=== PATIENT | male | born 1940 | race Caucasian/White ===

== ENCOUNTER → 2024-05-10 14:08 | Outpatient (REF) | payer MEDICARE, OTHER, SELFPAY | LOC: HWRAD 14:08 | PROVIDERS: ATTENDING PHYSICIAN Internal Medicine Geriatric Medicine | DX: S09.90XA Unspecified injury of head, initial encounter (principal) | CPT/HCPCS: 70450 ==

== ENCOUNTER 2024-05-24 05:50 | Emergency (ER) | payer MEDICARE, OTHER, SELFPAY ==
[2024-05-24] VITALS (9 sets, daily range): BP systolic 118–151; BP diastolic 67–95; BMI 24.6
[2024-05-24 06:10] LABS: % Basophils 0.7 % (0-2); % Eosinophils 2.4 % (0-6); % Immature Granulocytes 0.4 % (0-0.5); % Lymphocytes 28.7 % (20.5-51.1); % Monocytes 6.1 % (1.7-9.3); % Neutrophils 61.7 % (42.2-75.2); Absolute Basophils 0.1 10^3/uL (0-0.2); Absolute Eosinophils 0.2 10^3/uL (0-0.7); Absolute Lymphocytes 2.1 10^3/uL (1.2-3.4); Absolute Monocytes 0.5 10^3/uL (0.1-0.6); Absolute Neutrophils 4.6 10^3/uL (1.4-6.5); Hematocrit 41.4 % (39.0-52.0); Mean Corp Hgb Conc. 33.8 g/dL (33.0-37.0); Mean Corpuscular Hgb 29.3 pg (27.0-31.0); Mean Corpuscular Volume 86.6 fL (80.0-94.0); Mean Platelet Volume 9.7 fL (7.4-10.4); Nucleated Red Blood Cells % 0 % (-); Platelet Count 198 10^3/uL (130-400); Red Blood Cell Count 4.78 10^6/uL (4.70-6.10); Red Cell Dist. Width 14.5 % (11.5-14.5); White Blood Cell Count 7.4 10^3/uL (4.8-10.8)
--- NOTE | 2024-05-24 06:14 | ED.GENMED ---
History of Present Illness
General
Chief Complaint: Chest Pain
Source: patient and spouse
Exam Limitations: none
Time Seen by Provider: 05/24/24 06:06
History of Present Illness
History of Present Illness:
83-year-old male woke at 430 this morning to go to the bathroom. About 530 this morning developed substernal chest pressure with some clamminess no pleuritic pain no shortness of breath no radiation to the arm neck or back. No shearing pain.
Symptoms lasted about 5 minutes and have resolved. Patient feels fine at this time. No history of similar symptoms. He has been having chronic intermittent lightheadedness and is referred to cardiology for this reason. He has some known aortic
stenosis by echocardiogram. Currently asymptomatic.
Past History
Past History
ED Past Medical History: HTN, Hypercholesterolemia and Valvular disease (Aortic stenosis)
Review of Systems
Review of Systems
All Other Systems: Not applicable
Constitutional: Denies fever
Respiratory: Reports no symptoms
ABD/GI: Denies abdominal pain, bloody stools or black stools
Phy Exam
Physical Exam
Physical Exam:
GENERAL: Alert and oriented in no apparent distress
EYE: Orbits normal.
NECK: Supple
CARDIAC: Regular rate and rhythm with mild midsystolic murmur
LUNGS: Clear breath sounds,normal
ABDOMEN: Soft, without focal tenderness or distention
NEUROLOGICAL: Alert and oriented , grossly non-focal
SKIN: Warm and dry, no rash or lesion, no discoloration, skin intact.
MUSCULOSKELETAL: No edema,no deformity.Good color
PSYCH: Normal and appropriate interaction.
Scores
Heart Score for Chest Pain Patients
STEMI patient?: No
History: Moderately Suspicious
ECG: Nonspecific Repolarization
Age: >/= 65 years
Risk Factors: 1 or 2 Risk Factors
Troponin: </= Normal Limit
Heart Score for Chest Pain Patients: 5
Heart Score Risk: 20.3% MACE over next 6 weeks
Course
Orders/Labs/Results
Orders:
Orders
05/24/24 05:51
Electrocardiogram (*1) Urgent
Reason for Study: Chest Pain
Cardiac Monitoring- Treatment ONCE
EKG- Treatment ONCE
IV Insert/Care/Rem.- Treatment PRN
O2 Therapy [RESP] Urgent
Titrate/Wean O2 to maintain O2 sat greater than (%): 90
Special Instructions: Maintain sats >/=90%
Pulse Ox/spot Check [RESP] Urgent
Quantity: 1
Special Instructions: ON ROOM AIR
05/24/24 06:00
Complete Blood Count/With Diff Urgent
Comprehensive Metabolic Panel Urgent
D-Dimer Urgent
Troponin I Urgent
05/24/24 06:46
Electrocardiogram (*1) Urgent
Reason for Study: Chest Pain
EKG- Treatment ONCE
05/24/24 07:35
Aspirin Chewable [Low Strength Aspirin] 324 mg PO NOW STA
CXR Port [CR Chest Portable - 1 View] Urgent
Comment:
Reason For Exam: cp
Reason Study Needs to be Portable: Unable to Transport
05/24/24 08:28
Troponin I Urgent
05/24/24 09:05
CT Chest Pe Study Urgent
Comment:
Reason For Exam: cp/pos dimer
Abnormal Lab Results
05/24/24
06:00
D-Dimer 0.76 H ug/mlFEU
(0.00-0.50)
Chloride 108 H mmol/L
(98-107)
BUN 23 H mg/dl
(9-20)
Glucose 113 H mg/dl
(70-99)
05/24/24 06:00
05/24/24 06:00
Vital Signs
Initial and Last Documented VS:
Initial Vital Signs
Temp Pulse Resp BP
98.0 F 82 15 151/83
05/24/24 05:53 05/24/24 05:53 05/24/24 05:53 05/24/24 05:53
Last Documented Vital Signs
Temp Pulse Resp BP Pulse Ox
98.0 F 72 16 138/76 95
05/24/24 05:53 05/24/24 07:00 05/24/24 07:00 05/24/24 07:00 05/24/24 06:03
MDM/Problems Addressed
Differential Diagnosis Includes:
Patient with brief resolved nonexertional chest pain. Workup including cardiac evaluation. If this is negative to consider PE or aortic issue although very unlikely. Currently stable and nontoxic
*Pulse Oximetry
Patient hypoxic: no
*EKG
Interpreted by ED Provider?: Yes
Interpretation: abnormal
Comparison EKG: no comparison EKG present
Heart Rate: 75
Rate: normal
Rhythm: sinus
[place]: normal axis
Interval: normal interval
QRS Pattern: normal QRS
Ischemia: non-specific ST changes
*Critical Care Note
Total Time (30-74mins, 75-104mins- exclusive of procedures): Not Applicable
Data Reviewed
Review of Other/Old Records Reveals: Testing (Echocardiogram)
Update Note
Update Note:
0715... Patient with some brief recurring chest pain. Repeat EKG actually is better with T waves normalized. Clinically stable. Will get a CT scan to rule out pulmonary emboli or dissection although clinically unlikely. Contacted cardiology for
their opinion.
0735.... With patient's EKG normalizing and ST changes normalizing, I am more concerned this may be a cardiac issue. Clinically I had a very low suspicion for dissection or pulmonary emboli. He has no shearing pain he is currently asymptomatic he
had no back pain he has no shortness of breath or pleuritic pain. He is stable vital signs. I would like to hold on CT if reasonably possible in case he needs a dye load for a cath at some point. We will change approach and do a D-dimer and chest
x-ray. If positive, we are stuck doing a CT however if negative I feel this is a reasonable rule out for those other etiologies
0910.... Repeat troponin negative. Discussed with cardiology. D-dimer age-adjusted is normal however is elevated. It is highly unlikely he would require emergent cardiac cath today. Therefore we will send him for CT
1120.. CT scan shows no pulmonary emboli. Dense coronary artery calcifications aortic valvular calcifications.. Possible pulmonary hypertension also a thyroid nodule and a cystic mass on the kidney. Patient will be given copy of CT report for
follow-up. Cardiology has arranged close follow-up. I did talk to the family about returning immediately with any recurrent symptoms
ED Attending Note
-
Portions of this chart may have been created with voice recognition software.� Occasional wrong word or��sound alike� substitutions may have occurred due to the inherent limitations of voice recognition software.
Discharge Plan
Departure
Patient Disposition: Home (Routine Discharge)
Date of Disposition: 05/24/24
Time of Disposition: 11:24
Patient with high blood pressure during this ER visit?: Yes
Discharge Problem:
Anterior chest pain, Stable thyroid nodule, Possible pulmonary hypertension, Cystic mass of the kidney
Instructions: Chest Pain DCA Follow Up, BLOOD PRESSURE
Prescriptions:
No Action
amlodipine 5 mg Tablet
5 mg PO DAILY
simvastatin 40 mg Tablet
40 mg PO HS
tamsulosin 0.4 mg Capsule
0.4 mg PO DAILY
Centrum Silver Tablet
1 tab PO DAILY
coenzyme Q10 [Co Q-10] 200 mg Capsule
200 mg PO DAILY
Referrals:
Dhiraj Rocha MD [Family Provider] - Follow up in 2-3 days
Activity Restrictions/Additional Instructions:
Follow-up your CAT scan findings with your primary physician.
Interventions
Interventions:
*Risk Screen - Suicide Last Done: 05/24/24 05:53
*General Assessment Last Done: 05/24/24 05:53
*Neglect/Abuse Screening Last Done: 05/24/24 05:53
ED- Fall Risk Assessment Last Done: 05/24/24 05:53
*ED COVID-19 Vaccine History Last Done: 05/24/24 05:53
ED- Cardiac Assessment Last Done: 05/24/24 06:03
Discharge Date and Time
Print Language: SLOVENIAN
[2024-05-24 06:30] LABS: ALT (SGPT) 24 U/L (0-50); AST (SGOT) 54 U/L (17-59); Alkaline Phosphatase 92 U/L (38-126); Blood Urea Nitrogen 23 mg/dl (9-20); Calcium 9.3 mg/dl (8.4-10.2); Carbon Dioxide 27 mmol/L (22-30); Chloride 108 mmol/L (98-107); Estimated Creatinine Clearance 53 ml/min; Glucose 113 mg/dl (70-99); Potassium 4.2 mmol/L (3.5-5.1); Sodium 140 mmol/L (135-145); Total Bilirubin 0.7 mg/dl (0.2-1.3); Total Protein 6.6 g/dl (6.3-8.2); eGFR > 60.00
[2024-05-24 06:42] LABS: Troponin I < 0.012 ng/ml
[2024-05-24] MEDS: LOW STRENGTH ASPIRIN 324 MG PO (07:40)
--- NOTE | 2024-05-24 08:16 | CON.CAR ---
Addendum entered and electronically signed by Hill Hernandez MD 05/24/24 10:30:
I saw and examined the patient.
The Criminal Investigator's note was reviewed and I agree with the note.
Comment: Briefly, 83-year-old man past medical history of hypertension hyperlipidemia and moderate aortic stenosis who awoke this morning with substernal chest pressure and presented to [place] emergency department for further evaluation
It seems that chest discomfort self resolved within approximate 15 to 20 minutes
Tells me he has never had a prior episode such as this
Twelve-lead ECGs here are unremarkable
Troponin has been undetectable x 2
As he is currently chest pain-free we will plan for outpatient ischemic evaluation, tentatively nuclear stress testing in the next few weeks and then office follow-up
Discussed activity restrictions
Updated his who is at bedside
Original Note:
Consultation
Consultation Request
Date/Time Consultation Requested: 05/24/24
Date/Time Consultation Performed: 05/24/24
Requesting Provider: Dr. Duffy in the ER
Performing Provider: Dr. Hernandez
Reason for Consultation: Chest pain
Medical History
-
History of Present Illness:
Patient came to [facility] this morning with chest pain and cardiology has been consulted to evaluate patient in the ER. Patient says he had a normal day yesterday and was able to walk into [place] with his to go to dinner and the movies, no chest
pain with ambulation. Patient went to bed feeling fine and awoke around 0430 to urinate which is not unusual for him, he felt fine and went back to bed. He awoke about an hour later with a heavy chest pain without radiation. No SOB or palpitations.
He says the pain lasted about 15 minutes and then started to resolve without specific intervention, but he was already on his way into the ER. Pain resolved completely. Pain recurred for a few seconds in the ER without clear provocation and again
resolved without specific intervention. He is pain free at present. He has never had pain like that before. No previous stress test, but had an echo in October as noted above that showed moderate . D-dimer is elevated and he had a fall about 2
weeks ago landing on his left side and hitting his head, but outpatient CT head was negative at that time as ordered by his PCP.
PMH:
Moderate peak/mean 35/24 mmHg by echo 11/25/23
CKD 3
HTN
Hyperlipidemia
Past Medical History
Past Medical History: Other (in HPI)
Past Surgical History: Appendectomy and Other (hernia repair)
Social History
Tobacco: Former Smoker
Alcohol: Occasional
Drug: None
Personal:
Living: With Family
Family History
Family History: Adopted
Allergies / Home Medications
Allergy/AdvReac Type Severity Reaction Status Date / Time
No Known Allergies Allergy Unverified 01/04/23 13:09
�Medication �Instructions �Recorded �Confirmed �Type
amlodipine 5 mg tablet 5 mg PO DAILY 01/04/23 01/04/23 History
coenzyme Q10 200 mg capsule (Co 200 mg PO DAILY 01/04/23 01/04/23 History
Q-10)
htibsxzpjwya-zraqytkn-cueidv tablet 1 tab PO DAILY 01/04/23 01/04/23 History
simvastatin 40 mg tablet 40 mg PO HS 01/04/23 01/04/23 History
tamsulosin 0.4 mg capsule 0.4 mg PO DAILY 01/04/23 01/04/23 History
Review of Systems
-
History Source: Patient and Family ( sitting bedside helping with HPI)
All other systems: Negative unless noted
Physical Exam
Vital Signs
Temp Pulse Resp BP Pulse Ox
98.0 F 72 16 138/76 95
05/24/24 05:53 05/24/24 07:00 05/24/24 07:00 05/24/24 07:00 05/24/24 06:03
GEN: NAD. AAOx3
HEENT: mmm
LUNGS: CTA B/L, no wheezes/rales
CV: Reg, S1/S2, 1/6 syst LSB
ABD: soft, BS+, NT, ND
EXT: No clubbing, cyanosis, lesions or edema B/L. +2 B/L PT pulses
NEURO: Gross non-focal
SKIN: Warm, dry and pink. No rash
Lab Results
05/24/24 06:00
05/24/24 06:00
Troponin I < 0.012 ng/ml 05/24/24 06:00
Impression / Plan
-
PCP: Dr. Rocha
Cardiology: Dr. REANNA Smyth
Impression:
Chest pain
Moderate peak/mean 35/24 mmHg by echo 11/25/23
Elevated D-dimer
CKD 3
HTN
Hyperlipidemia
Echo 11/25/23: EF 55-60%, mild MR, mild to mod with peak/mean 35/24 mmHg and AISSATOU 1.1-1.2 cm sq, mild aortic regurgitation, normal aortic root and proximal ascending aorta size
Plan:
-Patient came to [facility] this morning with chest pain and cardiology has been consulted to evaluate patient in the ER. Patient says he had a normal day yesterday and was able to walk into [place] with his to go to dinner and the movies, no
chest pain with ambulation. Patient went to bed feeling fine and awoke around 0430 to urinate which is not unusual for him, he felt fine and went back to bed. He awoke about an hour later with a heavy chest pain without radiation. No SOB or
palpitations. He says the pain lasted about 15 minutes and then started to resolve without specific intervention, but he was already on his way into the ER. Pain resolved completely. Pain recurred for a few seconds in the ER without clear
provocation and again resolved without specific intervention. He is pain free at present. He has never had pain like that before. No previous stress test, but had an echo in October as noted above that showed moderate . D-dimer is elevated and he
had a fall about 2 weeks ago landing on his left side and hitting his head, but outpatient CT head was negative at that time as ordered by his PCP.
-Chest pain that woke him from sleep, but serially undetectable Troponin levels. ECG reviewed by me with nonspecific ST changes. Recommend that ER complete whatever work-up is planned for elevated D-dimer.
-From a cardiology perspective will recommend exercise nuclear stress test given chest pain, HTN, hyperlipidemia and CKD 3b.
-No need to repeat echo at this time
-BP overall well controlled, continue amlodipine 5 mg daily.
[2024-05-24 08:24] LABS: D-Dimer 0.76 ug/mlFEU (0.00-0.50)
[2024-05-24 08:59] LABS: Troponin I < 0.012 ng/ml
== END 2024-05-24 12:02 | disposition home or self-care (01) ==
LOC: EMR 05:50
PROVIDERS: Physician Assistant Medical; Student in an Organized Health Care Education/Training Program; EMERGENCY PHYSICIAN Emergency Medicine; FAMILY PHYSICIAN Internal Medicine Geriatric Medicine
DX: R07.89 Other chest pain (principal); I10 Essential (primary) hypertension; E78.00 Pure hypercholesterolemia, unspecified; I38 Endocarditis, valve unspecified; I35.0 Nonrheumatic aortic (valve) stenosis; I12.9 Hypertensive chronic kidney disease with stage 1 through stage 4 chronic kidney disease, or unspecified chronic kidney disease; N18.32 Chronic kidney disease, stage 3b; E04.1 Nontoxic single thyroid nodule; I25.10 Atherosclerotic heart disease of native coronary artery without angina pectoris; J43.9 Emphysema, unspecified; Z79.899 Other long term (current) drug therapy; Z87.891 Personal history of nicotine dependence; Z90.49 Acquired absence of other specified parts of digestive tract; Z98.890 Other specified postprocedural states
CPT/HCPCS: 99284; 71045; 71275; 80053; 84484; 85025; 85379; 93005; Q9967

== ENCOUNTER → 2024-06-14 08:02 | Outpatient (REF) | payer MEDICARE, OTHER, SELFPAY | LOC: DHCBC/DCA 08:02 | PROVIDERS: ATTENDING PHYSICIAN Internal Medicine Cardiovascular Disease; FAMILY PHYSICIAN Internal Medicine Geriatric Medicine | DX: R07.2 Precordial pain (principal); N18.32 Chronic kidney disease, stage 3b | CPT/HCPCS: 78452; 93017; A9500; J2785 ==

== ENCOUNTER → 2024-06-21 12:36 | Outpatient (REF) | payer MEDICARE, OTHER, SELFPAY | LOC: HWRAD 12:36 | PROVIDERS: ATTENDING PHYSICIAN Nurse Practitioner Family | DX: R79.89 Other specified abnormal findings of blood chemistry (principal); R74.8 Abnormal levels of other serum enzymes | CPT/HCPCS: 76700 ==

== ENCOUNTER → 2024-06-30 08:24 | Outpatient (REF) | payer MEDICARE, OTHER, SELFPAY | LOC: HWRAD 08:24 | PROVIDERS: ATTENDING PHYSICIAN Nurse Practitioner Family | DX: N28.1 Cyst of kidney, acquired (principal); Z87.19 Personal history of other diseases of the digestive system; R10.10 Upper abdominal pain, unspecified; E04.1 Nontoxic single thyroid nodule; I10 Essential (primary) hypertension; E78.2 Mixed hyperlipidemia | CPT/HCPCS: 74178; Q9967 ==

== ENCOUNTER → 2024-11-30 13:49 | Outpatient (REF) | payer MEDICARE, OTHER, SELFPAY | LOC: HWRCS 13:49 | PROVIDERS: ATTENDING PHYSICIAN Internal Medicine Cardiovascular Disease; FAMILY PHYSICIAN Internal Medicine Geriatric Medicine | DX: R07.2 Precordial pain (principal); N18.32 Chronic kidney disease, stage 3b | CPT/HCPCS: 93306 ==

== ENCOUNTER → 2024-12-02 08:42 | Outpatient (REF) | payer MEDICARE, OTHER, SELFPAY | LOC: PAVMRI 08:42 | PROVIDERS: ATTENDING PHYSICIAN Internal Medicine Geriatric Medicine | DX: I10 Essential (primary) hypertension (principal); E78.2 Mixed hyperlipidemia; K40.90 Unilateral inguinal hernia, without obstruction or gangrene, not specified as recurrent; R16.1 Splenomegaly, not elsewhere classified; E04.1 Nontoxic single thyroid nodule; R80.9 Proteinuria, unspecified; R35.0 Frequency of micturition; E55.9 Vitamin D deficiency, unspecified; Z13.31 Encounter for screening for depression; I35.0 Nonrheumatic aortic (valve) stenosis; I08.0 Rheumatic disorders of both mitral and aortic valves; R55 Syncope and collapse; K62.6 Ulcer of anus and rectum; R41.3 Other amnesia | CPT/HCPCS: 70551 ==

== ENCOUNTER 2024-12-27 06:21 | Day surgery (SDC) | payer MEDICARE, OTHER, SELFPAY | END 2024-12-27 14:58 | disposition home or self-care (01) | LOC: GI 06:21 | PROVIDERS: ATTENDING PHYSICIAN Surgery | DX: Z12.11 Encounter for screening for malignant neoplasm of colon (principal); K62.5 Hemorrhage of anus and rectum; K57.30 Diverticulosis of large intestine without perforation or abscess without bleeding; Z86.0100 Personal history of colon polyps, unspecified | CPT/HCPCS: 45378; 88305 ==

== ENCOUNTER 2025-05-25 23:31 | Inpatient (IN) | payer MEDICARE, OTHER, SELFPAY ==
[2025-05-25 17:36] VITALS: BP 139/74
[2025-05-25 18:00] LABS: Hematocrit 41.1 % (39.0-52.0); Hemoglobin 13.6 g/dL (13.0-18.0); Mean Corp Hgb Conc. 33.1 g/dL (33.0-37.0); Mean Corpuscular Volume 88.6 fL (80.0-94.0); Nucleated Red Blood Cells % 0 % (-); Platelet Count 189 10^3/uL (130-400); Red Cell Dist. Width 13.9 % (11.5-14.5)
[2025-05-25 18:01] LABS: Urine Character Clear (Clear)
[2025-05-25 18:15] LABS: ALT (SGPT) 243 U/L (0-50); AST (SGOT) 292 U/L (17-59); Albumin 4.2 g/dl (3.5-5.0); Alkaline Phosphatase 161 U/L (38-126); Blood Urea Nitrogen 22 mg/dl (9-20); Calcium 9.2 mg/dl (8.4-10.2); Carbon Dioxide 23 mmol/L (22-30); Chloride 108 mmol/L (98-107); Glucose 146 mg/dl (70-99); Lipase 183 U/L (23-300); Potassium 3.7 mmol/L (3.5-5.1); Sodium 141 mmol/L (135-145); Total Protein 7.0 g/dl (6.3-8.2); eGFR > 60.00
[2025-05-25 19:04] LABS: Urine Urothelial Cell 0-2 /LPF (FEW)
[2025-05-25 19:05] LABS: Urine Red Blood Cell 0-2 /HPF (0-2)
[2025-05-25 19:12] VITALS: BP 153/67
[2025-05-25 20:00] VITALS: BP 138/71; BMI 23.1
--- NOTE | 2025-05-25 20:08 | ED.GENMED ---
History of Present Illness
General
Chief Complaint: Abdominal Pain
Source: patient and spouse ( at)
Exam Limitations: none
Time Seen by Provider: 05/25/25 20:03
Nursing documentation reviewed up to this point in time: agreed with
History of Present Illness
History of Present Illness:
Patient is an 84-year-old male with known cholelithiasis who presents to the emergency department with right abdominal pain. Patient states symptoms started today around 4 PM and have been constant. He describes a sharp pain in his upper
abdomen/right upper quadrant. He denies any associated nausea, vomiting, or diarrhea. He has had no known fever. He denies any chest pain or shortness of breath. Patient does report that he had similar symptoms yesterday around noon although
they resolved after a few hours. He denies any dysuria or hematuria however noted that his urine today seemed very yellow today.
Patient was found to have gallstones about 1 year ago and has had intermittent symptoms since although pain always resolves shortly after onset.
Past History
Past History
ED Past Medical History: HTN, Hypercholesterolemia and Valvular disease (Aortic stenosis)
Review of Systems
Review of Systems
Allergies reviewed?: Yes
All Other Systems: ROS reviewed and negative except as documented in HPI and ROS
Phy Exam
Physical Exam
Physical Exam:
- Vitals: Hypertensive, otherwise vital signs stable. Afebrile
- General: Well appearing in no distress
- HEENT: Moist oral mucosa. Sclera nonicteric
- Cardiovascular: No murmurs, normal heart rate, regular rhythm, No chest wall tenderness
- Pulmonary: No respiratory distress, breath sounds are clear and equal
- Abdomen: Abdomen soft. Mild tenderness in right upper quadrant. No rebound tenderness or guarding. Positive Braxton sign
- Neurologic: Excellent strength all extremities, no coordination deficits
- Psychiatric: Appropriate mental status, normal insight and judgement
- Extremities: Nontender, no edema, moves all extremities equally
- Skin: No rash, no lesions
Course
Orders/Labs/Results
Orders:
Orders
05/25/25 17:41
Electrocardiogram (*1) Urgent
Reason for Study: Abdominal Pain
EKG- Treatment ONCE
05/25/25 17:51
Complete Blood Count/With Diff Urgent
Comprehensive Metabolic Panel Urgent
Direct Bilirubin Urgent
Comment: ADD ON
Lipase Urgent
Urinalysis Reflex To Culture Urgent
Date Specimen was Collected: 05/25/25
Time Specimen was Collected: 17:41
Urine Microscopic Reflex Cult Urgent
Urine Culture Urgent
HILARIO Source: U
Specimen Description:
Date Specimen was Collected: 05/25/25
Time Specimen was Collected: 17:41
05/25/25 20:18
0.9% Sodium Chloride 1000 ml [Nss] 1,000 ml IV BOLUS
US Abdomen Complete/Upper Urgent
Comment:
Reason For Exam: RUQ pain, elevated LFTs
05/25/25 22:18
Piperacillin/Tazo 3.375 Gram [Zosyn] 3.375 gram in 50 ml IV NOW
05/25/25 22:52
Admit/Transfer Patient As Directed
Co-Sign Provider:
Level of Care: Inpatient admission
Assign to:: Medical/Surgical
Physician / Group: Zora
Diagnosis: Acute Cholecysitis
Reason for Hospitalization: IV abx,
Expected length of stay greater than two midnights?: Yes
ELOS- Estimated Length of Stay in days: 3
I certify the patient meets the requirements for IP care: Yes
PRN Pain Medication Management As Directed
May give lesser potent ordered pain med per pt: Yes
preference::
Protocol:: Medication orders for pain may be administered in a
manner that supports deferring to patient preference
when the pt is:
- Requesting an ordered lesser potent pain medication.
Least to most potent pain medications are defined
as: acetaminophen < NSAID < tramadol < opioids
(morphine, oxycodone, hydromorphone).
- Requesting a lesser dose of the same medication IF
ORDERED.
- Requesting a less intrusive route of administration
if both routes are prescribed by the provider (PO <
IV).
05/25/25 22:56
Code Status As Directed
Resuscitation Status: Full Code
05/26/25 00:59
Acetaminophen [Tylenol] 650 mg PO Q4HPRN PRN
KCl 10 Meq/D5.45%Sodchl 1000ML [D5/0.45%NSS with KCL 10 MEQ] 10 meq in 1,000 ml IV 80 mls/hr
Morphine Sulfate 1 mg IV Q4HPRN PRN
Ondansetron Injectable [Zofran] 4 mg IV Q6HPRN PRN
05/26/25 00:59
Consult Notification Routine
Specialty to Notify: Gastroenterology
Consult Notification Routine
Specialty to Notify: Surgical
GASTROINTESTINAL CONSULT Routine
Consulting Provider: Keely Cisneros
Was physician already notified: No
Reason for consult: Elevated LFTs, possible choledocholithiasis
SURGICAL CONSULT Routine
Consulting Provider: Gustabo Nails
Was physician already notified: No
Reason for consult: Acute Cholecystitis
MR Abdomen W/o & W Contrast Routine
Comment: With MRCP
Reason For Exam: Abd Pain, Elevated LFTs
Recent pill cam endoscopy?: No
Activity As Directed
Activity Level: Out of Bed-Early Mobility
With Assistance
Bladder Scan As Directed
Follow Bladder Retention/Intermittent Cath Algorithm?: Yes
PRN if no void in __ hours: 6
Frequency: Per Retention Algorithm
If Bladder Scan Result >: 400
then:: Straight cath
I&O [Intake/ Output] As Directed
Frequency: q12h
Straight Cath As Directed
Frequency: Per Retention Algorithm
Additional Instructions: straight cath as needed per acute urinary retention algorithm for 24 hrs
Additional Instructions: for bladder scan greater than 400 mL
Vital Signs As Directed
Frequency: Per unit guidelines
Weight As Directed
Frequency: Daily
DX Deep Vein Thrombosis Video Routine
05/26/25 04:00
Piperacillin/Tazo 3.375 Gram [Zosyn] 3.375 gram in 50 ml IV Q6H
05/26/25 Breakfast
NPO
Allow oral meds: Yes
Allow clear liquids: 4hrs prior to procedure
Comment: may have unrestricted clear liquid up to 4 hrs prior to scheduled procedure
Complete Blood Count/No Diff IN AM
Comprehensive Metabolic Panel IN AM
05/26/25 18:00
Amlodipine [Norvasc] 5 mg PO QPM
Enoxaparin Sodium [Lovenox] 40 mg SC QPM
Tamsulosin [Flomax] 0.4 mg PO QPM
Abnormal Lab Results
05/25/25
17:51
WBC 11.1 H 10^3/uL
(4.8-10.8)
RBC 4.64 L 10^6/uL
(4.70-6.10)
Absolute Neuts (auto) 9.1 H 10^3/uL
(1.4-6.5)
Neutrophils % 82.0 H %
(42.2-75.2)
Lymphocytes % 12.2 L %
(20.5-51.1)
Chloride 108 H mmol/L
(98-107)
BUN 22 H mg/dl
(9-20)
Glucose 146 H mg/dl
(70-99)
Total Bilirubin 3.7 H mg/dl
(0.2-1.3)
Direct Bilirubin 2.0 H mg/dl
(0.0-0.4)
AST 292 H U/L
(17-59)
ALT 243 H U/L
(0-50)
Alkaline Phosphatase 161 H U/L
(38-126)
Ur Occult Blood Reflex 1+ A
(Negative)
Urine Urobilinogen 3+ A
(Neg - 1+)
Leukocyte Esterase Rfl 1+ A
(Negative)
Urine Bacteria (Reflex) Few A
(Negative)
Urine Albumin (Reflex) 4+ A
(Neg - Trace)
05/25/25 17:51
05/25/25 17:51
Vital Signs
Initial and Last Documented VS:
Initial Vital Signs
Temp Pulse Resp BP Pulse Ox
97.9 F 74 16 139/74 97
05/25/25 17:36 05/25/25 17:36 05/25/25 17:36 05/25/25 17:36 05/25/25 17:36
Last Documented Vital Signs
Temp Pulse Resp BP Pulse Ox
98.2 F 96 16 129/75 96
05/26/25 01:00 05/26/25 01:00 05/26/25 01:00 05/26/25 01:00 05/26/25 01:45
MDM/Problems Addressed
Differential Diagnosis Includes:
Not limited to: Biliary colic, acute cholecystitis, choledocholithiasis, cholangitis, pancreatitis, appendicitis, etc.
MDM/Problems Addressed:
84-year-old male presenting with persistent right upper quadrant pain which began earlier today. No associated nausea, vomiting, diarrhea. He has history of similar intermittent symptoms over the past year after this of gallstones. No associated
chest pain or shortness of breath. Patient mildly hypertensive, otherwise with stable vital signs on arrival. Physical exam as above. Patient well-appearing, no apparent distress. His abdomen is soft with mild tenderness in right upper quadrant
and positive Braxton sign. No rebound tenderness or guarding. Differential broad although given history of cholelithiasis�concern for acute cholecystitis versus choledocholithiasis today. Other considerations would be pancreatitis or appendicitis.
Will check basic labs and obtain ultrasound of abdomen. Will give IV fluids however patient declines any analgesia at this time.
Update: Labs reviewed significant for mild leukocytosis of 11.1 with left shift. Chemistry reveals elevated total bilirubin of 3.7 with direct bili of 2.0. Transaminitis with elevated alk phos noted, as well. With laboratory findings�concern for
possible obstructive process. Dispo pending abdominal ultrasound however patient remains well and comfortable appearing.
Update: Ultrasound shows findings consistent with acute cholecystitis along with dilated CBD concerning for choledocholithiasis. IV Zosyn initiated in the emergency department. Patient will require admission to hospitalist service with GI consult
for possible MRCP/ERCP. Patient will likely eventually require cholecystectomy, as well. Patient accepted to hospitalist service stable condition.
Chronic conditions affecting care:
Cholelithiasis
Acute Exacerbation and/or Progression of Chronic Illness:
Acute cholecystitis with concern for choledocholithiasis
*Radiology
Radiology exam reviewed: radiology read reviewed
*Pulse Oximetry
SaO2: 97
Oxygen Mode of Delivery: Room air
Patient hypoxic: no
*EKG
Interpreted by ED Provider?: NA
*Tafe Registrar Interpretation
Rate: normal
Interpretation: normal
Heart Rate: 96
Rhythm: sinus
*Critical Care Note
Total Time (30-74mins, 75-104mins- exclusive of procedures): Not Applicable
Data Reviewed
Review of Other/Old Records Reveals: Radiology Studies (CT scan abdomen/pelvis 07-22 which reveals cholelithiasis without evidence of acute cholecystitis, abdominal ultrasound from 06/21/[id number] active chest pain or abdominal patient states she
has had several days prior to my evaluation with.. Discussed taking. Discussed)
Patient Management
Discussion with other providers: Hospitalist
Escalation/DeEscalation of care consider admission/obs:
Admit with IV antibiotics and GI consult
ED Attending Note
-
Portions of this chart may have been created with voice recognition software.� Occasional wrong word or��sound alike� substitutions may have occurred due to the inherent limitations of voice recognition software.
Discharge Plan
Departure
Patient Disposition: Admit
Date of Disposition: 05/25/25
Time of Disposition: 22:20
Presentation/result/management discussed w/ accepting MD/DO: Hospitalist
Patient with high blood pressure during this ER visit?: Yes
Discharge Problem:
Acute cholecystitis, Choledocholithiasis
Interventions
Interventions:
*Risk Screen - Suicide Last Done: 05/25/25 17:36
*General Assessment Last Done: 05/25/25 19:50
*Neglect/Abuse Screening Last Done: 05/25/25 17:36
*ED- Fall Risk Assessment Last Done: 05/25/25 19:50
*ED COVID-19 Vaccine History Last Done: 05/25/25 19:50
*Nursing Disposition Last Done: 05/26/25 00:49
UQ-Rdwhen-Pshneyyzea Assessment Last Done: 05/25/25 19:50
Discharge Date and Time
Discharge Date/Time: 05/26/25 00:49
[2025-05-25] MEDS: NSS 1000 IV (21:37)
[2025-05-25 22:00] VITALS: BP 123/86
[2025-05-25] MEDS: ZOSYN 50 IV (22:27)
--- NOTE | 2025-05-25 22:54 | W.PN.UPDATE ---
Update Note
Progress Note Update
This is an addendum to H&P written by Karissa Wadsworth on 05/25/2025. Patient seen and examined independently with PA.
84-year-old male past medical history of cholelithiasis, hypertension, hypercholesterolemia, aortic stenosis, presenting with right abdominal pain. No fever.
Vital signs normal.
Labs show leukocytosis. Labs show transaminitis with total bilirubin of 3.7.
Abdominal ultrasound shows cholelithiasis and sludge with wall thickening pericholecystic fluid suspicious for acute cholecystitis. Distended common bile duct and mild intrahepatic duct dilatation.
Concern for acute cholecystitis/likely choledocholithiasis. N.p.o., IV fluids, Zosyn. General surgery consulted. MRCP. GI consulted. Hold statin.
[2025-05-25 23:00] VITALS: BP 120/65
--- NOTE | 2025-05-25 23:04 | HPS.HSE ---
Family Physician
-
Family Physician: Dhiraj Rocha
Chief Complaint
-
Abdominal Pain
History of Present Illness
Patient is an 84 y/o male past medical history of aortic stenosis, hypertension, hyperlipidemia, COPD and BPH who presents with abdominal pain. Patient reports some right upper quadrant pain yesterday which became much worse today. He describes it
as a sharp stabbing uribe. He denies any nausea, vomiting, diarrhea, constipation, fever, sweats or chills. Patient reports he was diagnosed with gallstones about a year ago and has had some intermittent attacks, but notes this is the worst episodes
he has experienced.
Medical History
Past Medical History
Past Medical History: Reports Other
Additional Past Medical History:
Moderate / Severe Aortic Stenosis
Essential Hypertension
Hyperlipidemia
COPD / Emphysema
BPH
Past Surgical History: Reports Other
Additional Past Surgical History:
Appendectomy
Tonsillectomy
Hernia Repair
Social History
Tobacco: Former Smoker (Quit ~2003)
Personal:
Living: With Family
Family History
Family History: Not pertinent
Allergies / Home Medications
Allergies reflects when Allergies were last updated in [facility].
Home Medications with original date entered in [facility]
Allergy/Medication List:
Allergies
Allergy/AdvReac Type Severity Reaction Status Date / Time
No Known Allergies Allergy Verified 05/25/25 17:35
Home Medications
amlodipine 5 mg tablet 5 mg PO QPM 01/04/23
coenzyme Q10 200 mg capsule (Co Q-10) 200 mg PO MOWEFR@1800 01/04/23
hyvykrgkcuuv-ecgruuwo-wxkfow tablet 1 tab PO QPM 01/04/23
simvastatin 40 mg tablet 40 mg PO MOWEFR@1800 01/04/23
tamsulosin 0.4 mg capsule 0.4 mg PO QPM 01/04/23
ascorbic acid (vitamin C) 500 mg tablet (Vitamin C) 500 mg PO QPM 05/25/25
ezetimibe 10 mg tablet (Zetia) 10 mg PO DAILY 05/25/25
ibuprofen 200 mg tablet (Advil) 400 mg PO DAILYPRN PRN mild pain 05/25/25
simethicone 80 mg chewable tablet 80 mg PO DAILYPRN PRN gerd 05/25/25
Review of Systems
-
A 12 point ROS was completed and negative except as noted: Yes
Constitutional: Denies Fever or Chills
Respiratory: Denies Cough or Trouble Breathing
Cardiac: Denies Chest Pain or Palpitations
Abdomen/GI: Reports See HPI
Physical Exam
Vital Signs
Vital Signs
Temp Pulse Resp BP Pulse Ox
97.9 F 93 23 153/67 97
05/25/25 17:36 05/25/25 20:00 05/25/25 20:00 05/25/25 19:12 05/25/25 20:09
Physical Exam
General: Comfortable and Conversant
HEENT: Anicteric and Moist mucous membranes
Respiratory: Clear and Non Labored Respirations
Cardiac: S1/S2, Regular Rhythm and Murmur
GI: Soft and Tender (Mild tenderness RUQ without rebound or guarding)
Rectal: Deferred by Provider
Musculoskeletal: No Clubbing and No Cyanosis
Skin: Warm and Dry
Neuro: Awake, Alert, Oriented and Nonfocal/grossly intact
Psych: Calm
Laboratory Results
-
05/25/25 17:51
05/25/25 17:51
Laboratory Results
Total Bilirubin 3.7 mg/dl (0.2-1.3) H 05/25/25 17:51
AST 292 U/L (17-59) H 05/25/25 17:51
ALT 243 U/L (0-50) H 05/25/25 17:51
Alkaline Phosphatase 161 U/L (38-126) H 05/25/25 17:51
Lipase 183 U/L (23-300) 05/25/25 17:51
Abdomen US:
Cholelithiasis and sludge, with wall thickening and pericholecystic fluid, suspicious for acute cholecystitis.
Distended common bile duct and mild intrahepatic duct dilatation. Although the common bile duct may increase with age, the possibility of choledocholithiasis cannot be excluded.
Data Reviewed
-
Ultrasound: Report Reviewed by me
Lab Data: Labs Reviewed by me
Impression/Plan
-
Acute Cholecystitis with suspected Choledocholithiasis
-Consult General Surgery
-Consult GI
-Check Abd MRI
-Trend LFTs
-Continue NPO
-Continue Zosyn
Moderate/Severe Aortic Stenosis
-Monitor Daily Weights
-Follows with Dr. REANNA Smyth as outpatient
Essential Hypertension
-Continue amlodipine with hold parameters
Hyperlipidemia
-Hold Zetia and simvastatin
BPH
-Continue Flomax
-Monitor bladder scans
Emphysema / COPD
-Patient does not use any inhalers as outpatient
DVT proph: Lovenox
Code Status: Full Code
[2025-05-26] VITALS: BP 112/71
[2025-05-26 01:00] VITALS: BP 129/75; BMI 23.8
[2025-05-26] MEDS: D5/0.45%NSS with KCL 10 MEQ 1000 IV ×2 (01:58→13:09)
--- NOTE | 2025-05-26 02:45 | PTCARENOTE ---
Receive pt from ER. Pt alert oriented X3, calm and pleasant, in no distress. Pt assist X1 to his bed, steady. Pt oriented to the room, call alcantara within reach. Pt at the bedside helping with pt's health hx. Pt denies Abd pain, nausea, fever, or
chills. VSS (T=98.2, HR=96, RR=16, KL=895/75, SpO2=96% on RA). IVFs infusing as per order. Bed alarm in place as a precautionary measure. Will continue to monitor the pt.
[2025-05-26] MEDS: ZOSYN 50 IV ×4 (03:27→22:18)
[2025-05-26 04:51] LABS: Hematocrit 37.0 % (39.0-52.0); Hemoglobin 12.7 g/dL (13.0-18.0); Mean Corp Hgb Conc. 34.3 g/dL (33.0-37.0); Mean Corpuscular Volume 87.1 fL (80.0-94.0); Platelet Count 161 10^3/uL (130-400); Red Cell Dist. Width 13.9 % (11.5-14.5)
[2025-05-26 05:17] LABS: ALT (SGPT) 261 U/L (0-50); AST (SGOT) 265 U/L (17-59); Albumin 3.2 g/dl (3.5-5.0); Alkaline Phosphatase 153 U/L (38-126); Blood Urea Nitrogen 19 mg/dl (9-20); Calcium 8.4 mg/dl (8.4-10.2); Carbon Dioxide 23 mmol/L (22-30); Chloride 112 mmol/L (98-107); Estimated Creatinine Clearance 50 ml/min; Glucose 135 mg/dl (70-99); Potassium 4.1 mmol/L (3.5-5.1); Sodium 141 mmol/L (135-145); Total Protein 5.6 g/dl (6.3-8.2); eGFR > 60.00
[2025-05-26 06:00] VITALS: BMI 23.8
[2025-05-26 07:32] VITALS: BP 124/73
--- NOTE | 2025-05-26 08:43 | CON.GI ---
Consultation
-
Date/Time Consultation Requested: 05/26/2025
Date/Time Consultation Performed: 05/26/2025
Requesting Provider: Text message from register clerk
Performing Provider: Dr. Cisneros
Reason for Consultation: Concern for choledocholithiasis
Medical History
Chief Complaint / HPI
History of Present Illness:
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 Reed, hypertension, CKD, moderate to severe aortic stenosis followed by Dr. Smyth, prior appy, COPD who presented to the emergency room on 05/25/2025
with upper abdominal pain but more concentrated in the right upper quadrant with Ultrasound showing cholecystitis with a distended common bile duct and mild intrahepatic ductal dilatation with no overt choledocholithiasis seen on ultrasound with a
bili of 4.7. He has had intermittent attacks for the past 2 days that were pretty severe. Would last hours at a time. Not necessarily associated with eating. States had a similar episode about a year ago. Currently reports no pain and has no
pain on examination. Denies any significant nausea or vomiting. No fever or chills.
Denies any significant GI symptoms chronically.
Most recent liver enzymes outpatient in November 2024 are normal. Today total bilirubin 4.7, AST 265, ALT 261, alkaline phosphatase 153, white count 11 on arrival now 9.9, hemoglobin 12.7, platelets 161
Currently, he is pain free and no pain on examination
Past Medical History
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
Past Surgical History: Other (Appendectomy, hernia repair)
Social History
Tobacco: Former Smoker
Personal:
Living: With Family
Employment: Retired
Allergies / Home Medications
Allergy/AdvReac Type Severity Reaction Status Date / Time
No Known Allergies Allergy Verified 05/25/25 17:35
�Medication �Instructions �Recorded
amlodipine 5 mg tablet 5 mg PO QPM 01/04/23
coenzyme Q10 200 mg capsule (Co 200 mg PO MOWEFR@1800 01/04/23
Q-10)
pdyvwehaoiaf-opmwkefc-pdvzjs tablet 1 tab PO QPM 01/04/23
simvastatin 40 mg tablet 40 mg PO MOWEFR@1800 01/04/23
tamsulosin 0.4 mg capsule 0.4 mg PO QPM 01/04/23
ascorbic acid (vitamin C) 500 mg 500 mg PO QPM 05/25/25
tablet (Vitamin C)
ezetimibe 10 mg tablet (Zetia) 10 mg PO DAILY 05/25/25
ibuprofen 200 mg tablet (Advil) 400 mg PO DAILYPRN PRN mild pain 05/25/25
simethicone 80 mg chewable tablet 80 mg PO DAILYPRN PRN gerd 05/25/25
Review of Systems
-
All other systems: A 12 pt ROS was Negative except as stated above in HPI
Vital Signs
Temp Pulse Resp BP Pulse Ox
98.8 F 85 18 124/73 97
05/26/25 07:32 05/26/25 07:32 05/26/25 07:32 05/26/25 07:32 05/26/25 07:32
Physical Exam
Exam
General: No Apparent Distress
HEENT: Normocephalic and Anicteric
Cardiac: Murmur
GI: Soft, Non Tender and Normal Bowel Sounds
Neuro: Awake and Alert
Psych: Calm
Results
WBC 9.9 10^3/uL (4.8-10.8) 05/26/25 04:25
Hgb 12.7 g/dL (13.0-18.0) L 05/26/25 04:25
Hct 37.0 % (39.0-52.0) L 05/26/25 04:25
MCV 87.1 fL (80.0-94.0) 05/26/25 04:25
Plt Count 161 10^3/uL (130-400) 05/26/25 04:25
Absolute Neuts (auto) 9.1 10^3/uL (1.4-6.5) H 05/25/25 17:51
Sodium 141 mmol/L (135-145) 05/26/25 04:25
Potassium 4.1 mmol/L (3.5-5.1) 05/26/25 04:25
Chloride 112 mmol/L (98-107) H 05/26/25 04:25
Carbon Dioxide 23 mmol/L (22-30) 05/26/25 04:25
BUN 19 mg/dl (9-20) 05/26/25 04:25
Creatinine 1.1 mg/dL (0.7-1.3) 05/26/25 04:25
Calcium 8.4 mg/dl (8.4-10.2) 05/26/25 04:25
Total Bilirubin 4.7 mg/dl (0.2-1.3) H 05/26/25 04:25
AST 265 U/L (17-59) H 05/26/25 04:25
ALT 261 U/L (0-50) H 05/26/25 04:25
Alkaline Phosphatase 153 U/L (38-126) H 05/26/25 04:25
Lipase 183 U/L (23-300) 05/25/25 17:51
Diagnostic Image Results:
---05/25/2025 abdominal ultrasound multiple gallstones and sludge in the gallbladder with a thickened edematous gallbladder measuring 5.3 mm with minimal pericholecystic fluid. Bile duct is 9 mm with mild intrahepatic ductal dilatation. Cannot
exclude choledocholithiasis
-----12/2024
[facility] 01/11/2025 08:47:58 AM EST > LV is small in size. Mild concentric LV hypertrophy. NL systolic function. LVEF is 55-60%. NL diastolic function. Mildly enlarged RV size and function. NL LA with a volume within NL range. RA is of NL
size as is the IVC. Thickened MV leaflets. Mitral annular calcification. Trace MR. Aortic annular calcification. Thickened AV with restricted leaflet motion. Peak/mean gradients across the AV are 54/32 mmHg, respectively. Using an LVOT of 2.1 cm the
valve area by the Continuity equation is 0.8 cm2. Moderate to severe aortic stenosis. Mild AR. Mild TR with an estimated pulmonary artery pressure of 26 mmHg. NL PV. Aortic root and aortic arch are NL in caliber.
---12/2024 The pt completed 2 minutes and 20seconds of the Guillermo protocol achieving 3 METS and 96 percent of maximum predicted HR. Exercise tolerance below avg. The stress EKG is positive for ischemia 1.[address] segment depression in leads 2, 3, AVF
and V6, remaining positive greater than 5 minutes into recovery. Perfusion imaging reveals a medium area of mildly decreased perfusion that is mildly reversible in the basal inferior segment mid inferior segment apical inferior segment consistent
with soft tissue attenuation. The transient ischemic dilation is not present. the ratio is 0.99. EF 70 %. This is a moderate risk study (1-3% MT or /year).
US 05/2024 No acute hepatobiliary abnormalities. Unremarkable gallbladder. No gallstones appreciated. Bilateral renal cysts. Pancreas and IVC not visualized secondary to overlying bowel gas.
Prior GI Procedures:
EGD:
Colonoscopy: 12/27/2024, colonoscopy with Dr. 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 Expected to undergo transanal excision next month
Assessment / Plan
-
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 Reed, hypertension, CKD, moderate to severe aortic stenosis followed by Dr. Smyth, prior appy, COPD who presented to the emergency room on 05/25/2025
with upper abdominal pain but more concentrated in the right upper quadrant with Ultrasound showing cholecystitis with a distended common bile duct and mild intrahepatic ductal dilatation with no overt choledocholithiasis seen on ultrasound with a
bili of 4.7.
# Right upper quadrant pain with imaging showing acute cholecystitis with a dilated common bile duct of 9 mm with elevated liver enzymes concerning for biliary obstruction with a total bilirubin of 4.7
-- Ultrasound shows a dilated common bile duct of 9 mm which could be consistent with his age. No discrete evidence of choledocholithiasis and considering his age and moderate-severe , would proceed with MRCP
-- Liver enzymes can also be elevated with acute cholecystitis but his total bilirubin is higher than would expect with just cholecystitis
-- Agree with antibiotics
-- He is not cholangitic, afebrile and has no pain currently
-- Agree with surgical consult, he is known to Dr. Reed and is to undergo a dysplastic transanal rectal polyp removal next month -Dr. Nails is on for this weekend
# Moderate to severe aortic stenosis -followed by Dr. Smyth. See the echo above for details
Data Reviewed
-
Ultrasound: Image Personally Visualized and interpreted and Report Reviewed by me
Old Records: Reviewed
-
-
Thank you for consultation and allowing me to participate in the patient's care. Please call the neon sign maker GI physician during the after hours with any questions or concerns.
--- NOTE | 2025-05-26 09:49 | W.PN.HOSP.TC ---
Today's Communication/Plan
-
await MRCP/GI/surgery input
Assessment / Plan
Assessment / Plan
pt is an 84 year old male
Acute Cholecystitis with suspected Choledocholithiasis--as per ultrasound--await surgery/GI input--await MRCP--likely will need cholecystectomy--NPO/IVF/IV zosyn
Moderate/Severe Aortic Stenosis--Monitor Daily Weights--Follows with Dr. REANNA Smyth as outpatient
Essential Hypertension--Continue amlodipine with hold parameters
Hyperlipidemia--Hold Zetia and simvastatin
BPH--Continue Flomax--Monitor bladder scans
Emphysema/COPD--Patient does not use any inhalers as outpatient--no acute exacerbation
DVT proph-- Lovenox
Code Status-- Full Code
Anticipated Discharge: > 48 hours
Subjective/Interval History
-
Date of Service: May 26, 2025
pt without c/o
Objective Data
-
Labs:
Laboratory Results
05/26/25
04:25
WBC 9.9
Hgb 12.7 L
Hct 37.0 L
Plt Count 161
Sodium 141
Potassium 4.1
Chloride 112 H
Carbon Dioxide 23
BUN 19
Creatinine 1.1
Glucose 135 H
Calcium 8.4
Total Bilirubin 4.7 H
AST 265 H
ALT 261 H
Alkaline Phosphatase 153 H
Vital Signs:
max temp for 24 hours
05/26/25
07:32
Temp 98.8 F
Vital Signs
Temp Pulse Resp BP Pulse Ox
98.8 F 85 18 124/73 97
05/26/25 07:32 05/26/25 07:32 05/26/25 07:32 05/26/25 07:32 05/26/25 07:32
I&O
05/25/25 05/26/25 05/27/25
06:59 06:59 06:59
Intake Total 310 / 310
Output Total 125 / 125
Balance 185 / 185
Review of Systems
-
All other systems: Reviewed and negative
Physical Exam
-
General: Well Developed, Well Nourished and No Apparent Distress
HEENT: Normocephalic and Atraumatic
Respiratory: Clear to Auscultation; Negative Wheezes or Rhonchi
Cardiac: Regular Rhythm, S1/S2 and Murmur
GI: Soft, Nontender, Nondistended and Normal Bowel Sounds
Musculoskeletal: No Clubbing, No Cyanosis and No Edema
Neuro: Awake and Alert
Psych: Calm
--- NOTE | 2025-05-26 11:24 | CON.GS ---
Consultation
-
Date/Time Consultation Performed: 05/26/2025 0945
Medical History
-
Chief Complaint: epigastric pain
History of Present Illness:
Mr Chavez is an 84 yo male with a h/o , COPD and prior appendectomy and right IHR who presented through the ED yesterday with upper abdominal pain in the epigastrium radiating across his abdomen into the RUQ. He notes an episode similar to this
one year ago with intermittent attacks most recently two days ago which lasted about 2 hours and then spontaneously resolved and yesterday. With yesterdays attack he presented for evaluation given increased frequency and duration of symtpoms. He
reports currently the pain has resolved and there is no tenderness on exam. He denies fevers or chills. He denies bowel or bladder changes.
Past Medical History
Past Medical History: COPD, HTN, Hypercholesterolemia, Valvular Disease (mod to severe ) and Other (BPH, cholelithiasis)
Past Surgical History: Appendectomy, Hernia Repair (right inguinal), Tonsilectomy and Other (colonoscopy 11/2024 with rectal polyp)
Social History
Tobacco: Smoker (>30years of smoking, quit about 20 years ago)
Alcohol: Occasional
Personal:
Living: With Family
Family History
Family History: Reviewed & Not Pertinent
Allergies / Home Medications
Allergy/AdvReac Type Severity Reaction Status Date / Time
No Known Allergies Allergy Verified 05/25/25 17:35
�Medication �Instructions �Recorded �Confirmed �Type
amlodipine 5 mg tablet 5 mg PO QPM 01/04/23 05/25/25 History
coenzyme Q10 200 mg capsule (Co 200 mg PO MOWEFR@1800 01/04/23 05/25/25 History
Q-10)
lmaqjmczojmo-zhaetrcf-ufbozo tablet 1 tab PO QPM 01/04/23 05/25/25 History
simvastatin 40 mg tablet 40 mg PO MOWEFR@1800 01/04/23 05/25/25 History
tamsulosin 0.4 mg capsule 0.4 mg PO QPM 01/04/23 05/25/25 History
ascorbic acid (vitamin C) 500 mg 500 mg PO QPM 05/25/25 05/25/25 History
tablet (Vitamin C)
ezetimibe 10 mg tablet (Zetia) 10 mg PO DAILY 05/25/25 05/25/25 History
ibuprofen 200 mg tablet (Advil) 400 mg PO DAILYPRN PRN mild pain 05/25/25 05/25/25 History
simethicone 80 mg chewable tablet 80 mg PO DAILYPRN PRN gerd 05/25/25 05/25/25 History
Review of Systems
-
History Source: Patient
All other systems: Negative unless noted
A 10 point review of systems was completed, and was negative except as per HPI.
Physical Exam
Vital Signs
Temp Pulse Resp BP Pulse Ox
98.8 F 85 18 124/73 97
05/26/25 07:32 05/26/25 07:32 05/26/25 07:32 05/26/25 07:32 05/26/25 08:20
05/25/25 05/26/25 05/27/25
06:59 06:59 06:59
Actual Weight 70.959 kg
Body Mass Index (BMI) 23.8
Lab Results
05/26/25 04:25
05/26/25 04:25
WBC 9.9 10^3/uL (4.8-10.8) 05/26/25 04:25
Hgb 12.7 g/dL (13.0-18.0) L 05/26/25 04:25
Hct 37.0 % (39.0-52.0) L 05/26/25 04:25
Plt Count 161 10^3/uL (130-400) 05/26/25 04:25
Abs Immat Gran (auto) 0.0 10^3/uL (0-0.05) 06/27/25 17:51
Neutrophils % 82.0 % (42.2-75.2) H 05/25/25 17:51
Physical Exam
General: Well Developed and Well Nourished
HEENT: Moist Mucous Membranes
Respiratory: Non Labored Respirations
GI: Soft, Non Tender and Non Distended
Skin: Warm, Dry and Jaundice (mild)
Neuro: Awake, Alert and AO x 3
Psych: Calm
Assessment / Plan
-
84 yo male with a h/o , appi and inguinal hernia repair with prior history of cholelithiasis with intermittent biliary colic who presents with repeated episodes of RUQ/epigastric pain over the past few days after meals. Mild leukocytosis on
presentation to 11.1 now resolved to 9.9. Bilirubin elevated on presentation to 3.7 and trending up to 4.7 with associated transaminitis. Initial direct bilirubin also elevated to 2.0. Lipase WNL. US of the abdomen demonstrating cholelithiasis with
negative sonographic murpyhyys but mild pericholecystic fluid and edematous gallbladder wall. Pain currently is resolved with no RUQ tenderness. AFVSS. Low suspicion for cholecystitis given exam/clinical findings; however, do suspect
choledocholithiasis given rising LFT's and presentation.
Plan:
MRCP pending to further evaluate
GI consult pending
Medical management as per primary team
Keep NPO for testing, then ok for CLD after MRI
Would recommend lap jeff this presentation, but will need to evaluate for choledocholithiasis and need for ERCP prior to surgery
Empiric ABX as per primary team
Lovenox/SCDs for VTE ppx
[2025-05-26 15:11] VITALS: BP 134/78
--- NOTE | 2025-05-26 15:59 | CM ---
Met with patient to obtain information for assessment. Patient stated that he lives with his children and his ex- in a two story house with six steps to enter. He is independent with his ADLs, personal care, dressing and bathing. He can do
planning rn, laundry and clean. His ex does the cooking. Patient has no DME. He has never had VN. He has not been to a SNF in the past.
Patient has a prescription plan and uses, [facility] in [place] for all of his medications.
Patient's PCP is, Chacha Rocha.
Plan: Case management will continue to follow and assist with discharge planning. Should be home no needs.
[2025-05-26] MEDS: FLOMAX 0.4 MG PO (18:14)
[2025-05-26] MEDS: LOVENOX 40 MG SC (18:14)
[2025-05-26] MEDS: NORVASC 5 MG PO (18:14)
--- NOTE | 2025-05-26 19:03 | PTCARENOTE ---
Received patient this am AAOx3. Pt NPO with IVF infusing without difficulty. Pt offered no complaints of pain. OOB ambulating in room with assistance of one. Made patient comfortable. Cont to assess patient status.
[2025-05-26 23:08] VITALS: BP 129/72
[2025-05-27] MEDS: D5/0.45%NSS with KCL 10 MEQ 1000 IV (01:11)
[2025-05-27] MEDS: TUMS CHEWABLE TABLET 200 MG PO (03:48)
[2025-05-27] MEDS: ZOSYN 50 IV ×4 (04:43→21:38)
[2025-05-27 05:20] LABS: Hematocrit 38.4 % (39.0-52.0); Hemoglobin 12.7 g/dL (13.0-18.0); Mean Corp Hgb Conc. 33.1 g/dL (33.0-37.0); Mean Corpuscular Volume 87.5 fL (80.0-94.0); Platelet Count 150 10^3/uL (130-400); Red Cell Dist. Width 14.1 % (11.5-14.5)
[2025-05-27 06:00] VITALS: BMI 23.6
[2025-05-27 06:06] LABS: ALT (SGPT) 188 U/L (0-50); AST (SGOT) 101 U/L (17-59); Albumin 3.3 g/dl (3.5-5.0); Alkaline Phosphatase 178 U/L (38-126); Blood Urea Nitrogen 13 mg/dl (9-20); Calcium 8.4 mg/dl (8.4-10.2); Carbon Dioxide 21 mmol/L (22-30); Chloride 110 mmol/L (98-107); Estimated Creatinine Clearance 46 ml/min; Glucose 122 mg/dl (70-99); Magnesium 1.9 mg/dl (1.6-2.3); Potassium 4.1 mmol/L (3.5-5.1); Sodium 139 mmol/L (135-145); Total Protein 5.8 g/dl (6.3-8.2); eGFR > 60.00
[2025-05-27 07:11] VITALS: BP 155/80
[2025-05-27] MEDS: MORPHINE SULFATE 1 MG IV (09:34)
--- NOTE | 2025-05-27 11:16 | W.PN.HOSP.TC ---
Today's Communication/Plan
-
consult cards
NPO/IVF
apprec GI/surg
Assessment / Plan
Assessment / Plan
pt is an 84 year old male
Acute Cholecystitis with suspected Choledocholithiasis (minimal by MRCP) but T bili rising to 7--apprec surgery/GI input--ERCP?surgery as per GI/surgery---NPO/IVF/IV zosyn
Moderate/Severe Aortic Stenosis--Monitor Daily Weights--Follows with Dr. REANNA Smyth as outpatient--will consult cards for optimization prior to ERCP/surgery
Essential Hypertension--Continue amlodipine with hold parameters
Hyperlipidemia--Hold Zetia and simvastatin
BPH--Continue Flomax--Monitor bladder scans
Emphysema/COPD--Patient does not use any inhalers as outpatient--no acute exacerbation
DVT proph-- Lovenox
Code Status-- Full Code
Anticipated Discharge: > 48 hours
Subjective/Interval History
-
Date of Service: May 27, 2025
pt c/o RUQ pain
Objective Data
-
Labs:
Laboratory Results
05/27/25
04:28
WBC 6.1
Hgb 12.7 L
Hct 38.4 L
Plt Count 150
Sodium 139
Potassium 4.1
Chloride 110 H
Carbon Dioxide 21 L
BUN 13
Creatinine 1.2
Glucose 122 H
Calcium 8.4
Total Bilirubin 7.1 H D
AST 101 H
ALT 188 H
Alkaline Phosphatase 178 H
Vital Signs:
max temp for 24 hours
05/26/25
15:11
Temp 99.2 F
Vital Signs
Temp Pulse Resp BP Pulse Ox
98.2 F 89 16 155/80 97
05/27/25 07:11 05/27/25 07:11 05/27/25 07:11 05/27/25 07:11 05/27/25 07:45
I&O
05/26/25 05/27/25 05/28/25
06:59 06:59 06:59
Intake Total 310 / 310 2260 / 2260
Output Total 125 / 125
Balance 185 / 185 2259 / 2260
Review of Systems
-
All other systems: Reviewed and negative
Abdomen/GI: Reports Abdominal Pain (RUQ)
Physical Exam
-
General: Well Developed, Well Nourished and No Apparent Distress
HEENT: Normocephalic and Atraumatic
Respiratory: Clear to Auscultation; Negative Wheezes
Cardiac: Regular Rhythm and S1/S2; Negative Murmur
GI: Soft, Nondistended, Normal Bowel Sounds and Tender (RUQ)
Musculoskeletal: No Clubbing, No Cyanosis and No Edema
Neuro: Awake
--- NOTE | 2025-05-27 11:16 | W.PN.GI.CBS2 ---
Today's Communication / Plan
-
-- Full liquid diet, n.p.o. after midnight for ERCP tomorrow afternoon
-- Discussed with hospitalist and surgery
-- I tried to call his , Serenity - no answer and I didn't leave a VM
Assessment / Plan
-
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 Reed, hypertension, CKD, moderate to severe aortic stenosis followed by Dr. Smyth, prior appy, COPD who presented to the emergency room on 05/25/2025
with upper abdominal pain but more concentrated in the right upper quadrant with MRCP consistent with choledocholithiasis and cholecystitis with bilirubin climbing now to 7
05/27/25 MRCP -+ cholecystitis - gallbladder wall thickening pericholecystic fluid distended gallbladder with stones impacted at the gallbladder neck. No intrahepatic ductal dilatation. Common bile duct 7 mm with small filling defects in the
distal common bile duct.
# Right upper quadrant pain with imaging showing acute cholecystitis with a dilated common bile duct of 9 mm with elevated liver enzymes concerning for biliary obstruction with a total bilirubin of 4.7 on admission
--MRCP today 05/27/2025 shows small filling defects in the distal common bile duct with no significant intrahepatic ductal dilatation or common bile duct dilatation. Bilirubin is rising now 7. No fever. No leukocytosis. On antibiotics.
-- Ultrasound shows a dilated common bile duct of 9 mm which could be consistent with his age. No discrete evidence of choledocholithiasis and considering his age and moderate-severe
-- Liver enzymes can also be elevated with acute cholecystitis but his total bilirubin is higher than would expect with just cholecystitis
-- Agree with antibiotics
-- He is not cholangitic, afebrile and has no pain currently
-- for eventual cholecystectomy timing per surgery
-- Full liquid diet today, n.p.o. after midnight for ERCP tomorrow afternoon
# Moderate to severe aortic stenosis -followed by Dr. Smyth.
12/2024: ECHO LV is small in size. Mild concentric LV hypertrophy. NL systolic function. LVEF is 55-60%. NL diastolic function. Mildly enlarged RV size and function. NL LA with a volume within NL range. RA is of NL size as is the IVC. Thickened MV
leaflets. Mitral annular calcification. Trace MR. Aortic annular calcification. Thickened AV with restricted leaflet motion. Peak/mean gradients across the AV are 54/32 mmHg, respectively. Using an LVOT of 2.1 cm the valve area by the Continuity
equation is 0.8 cm2. Moderate to severe aortic stenosis. Mild AR. Mild TR with an estimated pulmonary artery pressure of 26 mmHg. NL PV. Aortic root and aortic arch are NL in caliber.
Dr. Reed and is to undergo a dysplastic transanal rectal polyp removal next month
Subjective
Subjective
Date of Service: May 27, 2025
Patient did have some pain this morning and received pain medication. Currently pain-free
Objective
Data Reviewed
Laboratory Data:
Laboratory Results
05/27/25 04:28
05/27/25 04:28
Laboratory Results
Magnesium 1.9 mg/dl (1.6-2.3) 05/27/25 04:28
Total Bilirubin 7.1 mg/dl (0.2-1.3) H D 05/27/25 04:28
AST 101 U/L (17-59) H 05/27/25 04:28
ALT 188 U/L (0-50) H 05/27/25 04:28
Alkaline Phosphatase 178 U/L (38-126) H 05/27/25 04:28
Lipase 183 U/L (23-300) 05/25/25 17:51
Vital Signs and I&O:
Vital Signs
Temp Pulse Resp BP Pulse Ox
98.2 F 89 16 155/80 97
05/27/25 07:11 05/27/25 07:11 05/27/25 07:11 05/27/25 07:11 05/27/25 07:45
I&O
05/26/25 05/27/25 05/28/25
06:59 06:59 06:59
Intake Total 310 / 310 2259
Output Total 125 / 125
Balance 185 / 185 2259
Physical Exam
Physical Exam
HEENT: Anicteric (Icteric)
Cardiology: Normal Sinus Rhythm and Murmur
GI: Soft, Non Distended and Tender (Minimal in the tenderness in the epigastric area)
Extremities: No Edema
Neuro: Non Focal
[2025-05-27] MEDS: LR 1000 IV (12:02)
[2025-05-27] MEDS: DILAUDID 0.25 MG IV ×2 (12:09→16:22)
--- NOTE | 2025-05-27 15:11 | W.PN.GS2 ---
Addendum entered and electronically signed by Gustabo Nails MD 05/28/25 00:22:
Delayed entry. I saw and examined the patient the morning of 05/27/2025.
The PHARMACEUTICAL SERVICE REPRESENTATIVE's note was reviewed and I agree with the note.
Original Note:
Today's Communication / Plan
-
ERCP in AM
Cholecystectomy this admission, timing TBD
Assessment / Plan
-
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 Reed, hypertension, CKD, moderate to severe aortic stenosis followed by Dr. Smyth presenting with obstructive jaundice.
AFVSS
Bilirubin rising, mild transaminitis
MRCP demonstrating choledocholithiasis.
US and MRCP with mild gallbladder wall thickening and pericholecystic fluid. Distended gallbladder. ?cholecystitis
Pain initially resolved, now returned.
Plan:
ERCP planned tomorrow
Liquids tonight then NPO after MN
C/W IV ABX
Analgesics/antiemetics prn
Trend labs
Will plan cholecystectomy early this week after ERCP has been preformed
Medical management as per primary team
Discussed plan of care via TT with hospitalist and GI specialist and with patient's spouse at bedside
Subjective Data
-
Date of Service: May 27, 2025
Patient seen and examined at bedside with Dr. Nails. Denies n/v. Pain began again early this am and has persisted to the RUQ and across the epigastrium. Notes yellowing of skin and eyes.
Objective Data
-
Intake and Output
05/26/25 05/27/25 05/28/25
06:59 06:59 06:59
Intake Total 310 / 310 2260 / 2260
Output Total 125 / 125
Balance 185 / 185 0 / 2260
Intake:
Oral fluids 240 / 240
IV fluids (Total) 260 / 260 1820 / 1820
IV piggybacks 50 / 50 200 / 200
Output:
Urine, Voided 125 / 125
Other:
Number of approximated SMALL 5
amounts of urine
Number of approximated MODERATE 1 2
amounts of urine
Vital Signs
Temp Pulse Resp BP Pulse Ox
98.2 F 89 16 155/80 97
05/27/25 07:11 05/27/25 07:11 05/27/25 07:11 05/27/25 07:11 05/27/25 07:45
Lab Results
05/27/25 04:28
05/27/25 04:28
Calcium 8.4 mg/dl (8.4-10.2) 05/27/25 04:28
Magnesium 1.9 mg/dl (1.6-2.3) 05/27/25 04:28
Total Bilirubin 7.1 mg/dl (0.2-1.3) H D 05/27/25 04:28
Direct Bilirubin 5.0 mg/dl (0.0-0.4) H 05/27/25 04:28
AST 101 U/L (17-59) H 05/27/25 04:28
ALT 188 U/L (0-50) H 05/27/25 04:28
Alkaline Phosphatase 178 U/L (38-126) H 05/27/25 04:28
Total Protein 5.8 g/dl (6.3-8.2) L 05/27/25 04:28
Albumin 3.3 g/dl (3.5-5.0) L 05/27/25 04:28
Physical Exam
-
NAD
ABD soft, tender to RUQ into epigastrium, nd
Jaundiced with scleral icterus
[2025-05-27 15:21] VITALS: BP 146/87
--- NOTE | 2025-05-27 15:46 | CON.CAR ---
Consultation
Consultation Request
Date/Time Consultation Requested: 05/27/25
Date/Time Consultation Performed: 05/27/25
Requesting Provider: Suyapa
Performing Provider: David
Reason for Consultation: pre-op risk
Medical History
-
Chief Complaint: Abd pain
History of Present Illness:
84-year-old male past medical history of moderate-severe aortic stenosis presenting with abdominal pain diagnosed with acute cholecystitis. Cardiology is asked to comment on his preoperative risk for cholecystectomy.
Discussed with patient and his at bedside. They are understanding is no undergo ERCP tomorrow and subsequently will have cholecystectomy during this admission.
From a cardiac standpoint he has been asymptomatic. Tells me he has not been experiencing chest pain or pressure. No shortness of breath at rest or dyspnea on exertion. No orthopnea or PND and no lower extremity edema.
We reviewed that his aortic stenosis moderate to severe and he was due for repeat echo around this time which they tell me is scheduled for later this month.
PMHx:
Moderate-Severe Aortic Stenosis
Essential Hypertension
Hyperlipidemia
COPD / Emphysema
BPH
Appendectomy
Tonsillectomy
Hernia Repair
Past Medical History
Past Medical History: Other (as above)
Past Surgical History: Other (as above)
Social History
Personal:
Living: With Family
Family History
Family History: Reviewed & Not Pertinent
Allergies / Home Medications
Allergy/AdvReac Type Severity Reaction Status Date / Time
No Known Allergies Allergy Verified 05/25/25 17:35
�Medication �Instructions �Recorded �Confirmed �Type
amlodipine 5 mg tablet 5 mg PO QPM 01/04/23 05/25/25 History
coenzyme Q10 200 mg capsule (Co 200 mg PO MOWEFR@1800 01/04/23 05/25/25 History
Q-10)
uhmkgpcayepg-vjrjfhvf-qhgeqf tablet 1 tab PO QPM 01/04/23 05/25/25 History
simvastatin 40 mg tablet 40 mg PO MOWEFR@1800 01/04/23 05/25/25 History
tamsulosin 0.4 mg capsule 0.4 mg PO QPM 01/04/23 05/25/25 History
ascorbic acid (vitamin C) 500 mg 500 mg PO QPM 05/25/25 05/25/25 History
tablet (Vitamin C)
ezetimibe 10 mg tablet (Zetia) 10 mg PO DAILY 05/25/25 05/25/25 History
ibuprofen 200 mg tablet (Advil) 400 mg PO DAILYPRN PRN mild pain 05/25/25 05/25/25 History
simethicone 80 mg chewable tablet 80 mg PO DAILYPRN PRN gerd 05/25/25 05/25/25 History
Review of Systems
-
History Source: Patient
All other systems: Negative unless noted
Physical Exam
Vital Signs
Temp Pulse Resp BP Pulse Ox
100.4 F H 98 18 146/87 96
05/27/25 15:21 05/27/25 15:21 05/27/25 15:21 05/27/25 15:21 05/27/25 15:21
Lab Results
05/27/25 04:28
05/27/25 04:28
Physical Exam
General: Well Developed
HEENT: Normocephalic and Other (Scleral icterus)
Respiratory: Clear and Non Labored Respirations (on RA)
Cardiac: S1/S2, Regular Rhythm and Murmur (2/6 JANIE at the base)
GI: Non Distended
Musculoskeletal: No Edema
Skin: Warm, Dry and Other (Jaundiced)
Neuro: Awake and Alert
Psych: Calm
Impression / Plan
-
PCP: Dr. Rocha
Cardiology: Dr. REANNA Smyth
Impression:
Abdominal pain
Acute cholecystitis
Moderate to severe
CKD 3
HTN
Hyperlipidemia
Echo 11/25/23: EF 55-60%, mild MR, mild to mod with peak/mean 35/24 mmHg and AISSATOU 1.1-1.2 cm sq, mild aortic regurgitation, normal aortic root and proximal ascending aorta size
Plan:
-Presenting for evaluation of abdominal pain found to have acute cholecystitis. Patient is planned for ERCP and then subsequent cholecystectomy. Cardiology is asked to comment on his operative risk.
-Patient tells me that he has been asymptomatic from a cardiovascular standpoint with no active anginal symptoms. No evidence of decompensated heart failure based on history or physical exam.
-Prior stress test from May 2024 with no definitive evidence of ischemia
-Echo earlier this year with normal LVEF and moderate to severe
-His aortic stenosis puts him at elevated but not prohibitive risk to proceed with ERCP. Overall ERCP is not a high risk procedure and I think the patient can safely proceed without having repeat echo prior. Anesthesia should be made aware of his
valvular pathology.
- If he is to have cholecystectomy this admission would be helpful to have updated echo prior; will arrange for inpatient echo prior to surgery.
Discussed with patient's at bedside
Data Reviewed
-
EKG: Tracing Personally Visualized and interpreted
Ultrasound: Report Reviewed by me
MRI: Report Reviewed by me
Medical Tests (Nuc Med, Echo etc): Report Reviewed by me
Labs: Labs Reviewed by me
--- NOTE | 2025-05-27 17:23 | PTCARENOTE ---
Received patient this am AAOX3. Pt NPO with IVF infusing without difficulty. Pt off unit this am for MRCP. Pt has tolerated small sips of water. Pt complained of RUQ pain. Medicated patient with Morphine IV this am with moderate relief.
Suyapa made aware. Pt then medicated with Dilaudid IV with relief. 1520 pt has temp of 100.4. Blood Cultures Drawn and sent as ordered by Dr. Cisneros. Pt made comfortable. Cont to assess patient status.
[2025-05-27] MEDS: LOVENOX 40 MG SC (17:50)
[2025-05-27] MEDS: FLOMAX 0.4 MG PO (17:50)
[2025-05-27] MEDS: NORVASC 5 MG PO (17:50)
[2025-05-27] MEDS: TYLENOL 650 MG PO (17:58)
[2025-05-27 23:31] VITALS: BP 140/80
[2025-05-28] VITALS (7 sets, daily range): BP systolic 20–146; BP diastolic 64–87; BMI 23.5
[2025-05-28] MEDS: LR 1000 IV ×2 (02:03→15:18)
[2025-05-28] MEDS: ZOSYN 50 IV ×4 (03:26→21:36)
[2025-05-28 07:08] LABS: INR 1.10; PT 14.5 Sec (11.4-14.6)
[2025-05-28 07:09] LABS: APTT 39.5 Sec (23.4-35.0)
[2025-05-28 07:29] LABS: ALT (SGPT) 128 U/L (0-50); AST (SGOT) 46 U/L (17-59); Albumin 3.4 g/dl (3.5-5.0); Alkaline Phosphatase 181 U/L (38-126); Blood Urea Nitrogen 13 mg/dl (9-20); Calcium 9.1 mg/dl (8.4-10.2); Carbon Dioxide 19 mmol/L (22-30); Chloride 107 mmol/L (98-107); Estimated Creatinine Clearance 50 ml/min; Glucose 100 mg/dl (70-99); Lipase 32 U/L (23-300); Magnesium 1.6 mg/dl (1.6-2.3); Potassium 4.2 mmol/L (3.5-5.1); Sodium 138 mmol/L (135-145); Total Protein 5.9 g/dl (6.3-8.2); eGFR > 60.00
[2025-05-28 07:41] LABS: Hematocrit 41.3 % (39.0-52.0); Hemoglobin 13.9 g/dL (13.0-18.0); Mean Corp Hgb Conc. 33.7 g/dL (33.0-37.0); Mean Corpuscular Volume 86.6 fL (80.0-94.0); Platelet Count 195 10^3/uL (130-400); Red Cell Dist. Width 13.9 % (11.5-14.5)
--- NOTE | 2025-05-28 10:35 | W.PN.GS2 ---
Today's Communication / Plan
-
ERCP today
Assessment / Plan
-
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 Reed, hypertension, CKD, moderate to severe aortic stenosis followed by Dr. Smyth presenting with obstructive jaundice. + Choledocholithiasis on MRCP.
Questionable read of cholecystitis.
Plan:
ERCP planned today.
Can resume diet per GI.
N.p.o. at midnight, IV fluids, IV antibiotics.
Will plan for laparoscopic cholecystectomy tentatively tomorrow.
Medical management as per primary team
Surgery will follow.
Time Spent
Total Time Spent with Patient (in minutes): 20
Subjective Data
-
Date of Service: May 28, 2025
Interval Events:
No acute events overnight. Slept well. Pain Controlled. Denies Nausea/Vomiting, +bowel function. Tolerating diet.
Objective Data
-
Intake and Output
05/27/25 05/28/25 05/29/25
06:59 06:59 06:59
Intake Total 2260 / 2260 1540 / 1540 900 / 900
Output Total 350 / 350
Balance 2260 / 2260 1190 / 1190 900 / 900
Intake:
Oral fluids 240 / 240 480 / 480
IV fluids (Total) 1820 / 1820 960 / 960 800 / 800
IV piggybacks 200 / 200 100 / 100 100 / 100
Output:
Urine, Voided 350 / 350
Other:
Number of approximated SMALL 5 5 1
amounts of urine
Number of approximated MODERATE 2 8
amounts of urine
Vital Signs
Temp Pulse Resp BP Pulse Ox
98.8 F 103 18 140/87 98
05/28/25 07:42 05/28/25 07:42 05/28/25 07:42 05/28/25 07:42 05/28/25 08:00
Lab Results
05/28/25 06:25
05/28/25 06:25
Calcium 9.1 mg/dl (8.4-10.2) 05/28/25 06:25
Magnesium 1.6 mg/dl (1.6-2.3) 05/28/25 06:25
Total Bilirubin 4.4 mg/dl (0.2-1.3) H 05/28/25 06:25
Direct Bilirubin 5.0 mg/dl (0.0-0.4) H 05/27/25 04:28
AST 46 U/L (17-59) 05/28/25 06:25
ALT 128 U/L (0-50) H 05/28/25 06:25
Alkaline Phosphatase 181 U/L (38-126) H 05/28/25 06:25
Total Protein 5.9 g/dl (6.3-8.2) L 05/28/25 06:25
Albumin 3.4 g/dl (3.5-5.0) L 05/28/25 06:25
Physical Exam
-
GENERAL/NEURO: Awake, Alert, no distress
CHEST: Unlabored breathing on RA
ABDOMEN: Soft, Non-Tender, Non-Distended, jaundice
Patient has a owens catheter: No
Patient has a central line: No
--- NOTE | 2025-05-28 10:59 | W.PN.CARDCBS ---
Addendum entered and electronically signed by Jesus Molina MD 05/28/25 13:17:
Echocardiogram unchanged. Stable cardiology status for ERCP and cholecystectomy.
Addendum entered and electronically signed by Jesus Molina MD 05/28/25 11:19:
I saw and examined the patient.
The FOOD TECHNOLOGIST or PA's note was reviewed and I agree with the note.
Comment: General: Well developed, well nourished in NAD.
Neck: Supple, no JVD, HJR, carotids +2 B/L, no bruits bilaterally.
Heart: Non displaced PMI, RRR, 2/6 basal systolic murmur, No S3, S4, no rubs.
Lungs: Clear to auscultation bilaterally, no wheeze, rhonchi, rubs bilaterally,
normal expiratory phase.
Extremities: No clubbing, cyanosis or edema bilaterally.
Neuro: Grossly nonfocal, awake, alert and oriented x3.
Remains cardiovascular stable. Check echocardiogram today. Okay for ERCP without further testing. Okay for cholecystectomy in a.m. without further testing. Discussed with patient and at bedside.
Original Note:
Today's Communication / Plan
-
Echo today
ERCP planned, tentatively for cholecystectomy in AM
Impression / Plan
-
PCP: Dr. Rocha
Cardiology: Dr. REANNA Smyth
Impression:
Abdominal pain
Acute cholecystitis
Mod-severe by echo 11/2024
CKD 3
HTN
Hyperlipidemia
Echo 11/25/2023: EF 55-60%, mild MR, mild to mod with peak/mean 35/24 mmHg and AISSATOU 1.1-1.2 cm sq, mild aortic regurgitation, normal aortic root and proximal ascending aorta size
Echo 11/30/2024: EF 55-60%, mild cLVH, trace MR, moderate-severe with peak/mean gradients 54/32 mmHg, mild TR, estimated PAP 26 mmHg
Echo 05/28/2025: Study pending
Plan:
-Presented with abdominal pain. Admitted with acute cholecystitis.
-Plan is for ERCP today, followed by tentative plan for cholecystectomy tomorrow, 05/29 per patient and .
-Cardiology consulted for pre-op evaluation.
-He has been free of any cardiac symptoms. No chest pain or SOB.
-Prior stress test 05/2024 without evidence of ischemia. For repeat echo today, 05/28 to reassess known
-His aortic stenosis puts him at elevated but not prohibitive risk to proceed with ERCP. Overall ERCP is not a high risk procedure and I think the patient can safely proceed without having repeat echo prior. Anesthesia should be made aware of his
valvular pathology.
-Await echo results prior to cholecystectomy
Progress Note - Uniform Patrol Police Officer
Subjective
Date of Service: May 28, 2025
No cardiac complaints.
Objective
Labs:
05/28/25 06:25
05/28/25 06:25
Labs
Hgb 13.9 g/dL (13.0-18.0) 05/28/25 06:25
Hct 41.3 % (39.0-52.0) 05/28/25 06:25
Plt Count 195 10^3/uL (130-400) D 05/28/25 06:25
PT 14.5 Sec (11.4-14.6) 05/28/25 06:25
INR 1.10 05/28/25 06:25
APTT 39.5 Sec (23.4-35.0) H 05/28/25 06:25
Sodium 138 mmol/L (135-145) 05/28/25 06:25
Potassium 4.2 mmol/L (3.5-5.1) 05/28/25 06:25
BUN 13 mg/dl (9-20) 05/28/25 06:25
Creatinine 1.1 mg/dL (0.7-1.3) 05/28/25 06:25
Glucose 100 mg/dl (70-99) H 05/28/25 06:25
Vital Signs and I&O:
Vital Signs
Temp Pulse Resp BP Pulse Ox
98.8 F 103 18 140/87 98
05/28/25 07:42 05/28/25 07:42 05/28/25 07:42 05/28/25 07:42 05/28/25 08:00
Vital Signs
Temp Pulse Resp BP Pulse Ox
98.8 F 103 18 140/87 98
05/28/25 07:42 05/28/25 07:42 05/28/25 07:42 05/28/25 07:42 05/28/25 08:00
Intake & Output
05/26/25 05/27/25 05/28/25 05/29/25
06:59 06:59 06:59 06:59
Intake Total 310 / 310 2260 / 2260 1540 / 1540 900 / 900
Output Total 125 / 125 350 / 350
Balance 185 / 185 2260 / 2260 1190 / 1190 900 / 900
Physical Exam
Physical Exam
GEN: No distress, awake, alert, oriented x3
HEENT: supple, anicteric, mmm
LUNGS: CTA b/l, no wheezes/rales
CV: Reg, S1/S2, 2/6 syst murmur
EXT: No clubbing, cyanosis, or edema
NEURO: Gross non-focal
SKIN: Warm, dry, no rash
--- NOTE | 2025-05-28 14:19 | W.PN.HOSP.TC ---
Addendum entered and electronically signed by Norma Dale MD 05/28/25 16:57:
I saw and evaluated the patient independently. I reviewed the resident�s note and agree with findings and plan as documented by Dr. Humphreys.
GENERAL: well developed, well nourished, male in no apparent distress
HEENT: NC/AT
HEART: regular rate and rhythm, +S1, +S2
LUNGS : clear to auscultation bilaterally
ABDOM: soft, RUQ tenderness without guarding or rebound, nondistended, + bowel sounds
EXT: no cyanosis, clubbing, or edema
NEUROLOGIC: grossly intact
Acute Cholecystitis with suspected Choledocholithiasis --s/p ERCP with stone removed--apprec surgery/GI input--for lap jeff tomorrow
Moderate/Severe Aortic Stenosis--Monitor Daily Weights--Follows with Dr. REANNA Smyth as outpatient--apprec cards for optimization prior to ERCP/surgery--repeat ECHO without change--still with preserved EF and mod-severe
Essential Hypertension--Continue amlodipine with hold parameters
Hyperlipidemia--Hold Zetia and simvastatin
BPH--Continue Flomax--Monitor bladder scans
Emphysema/COPD--Patient does not use any inhalers as outpatient--no acute exacerbation
DVT proph-- Lovenox
Code Status-- Full Code
Original Note:
Today's Communication/Plan
-
Awaiting ERCP and Echo results
Assessment / Plan
Assessment / Plan
Dave is an 84-year-old male with history of hypertension, CKD3, moderate to severe aortic stenosis followed by Dr. Smyth, COPD who with upper abdominal pain but more concentrated in the right upper quadrant with MRCP consistent with cholecystitis
#Acute Cholecystitis
#Choledocholithiasis
Abd US showed distended CBD and intrahepatic duct
Gen surg consulted
N.p.o. at midnight, IV fluids, IV antibiotics.
Will plan for laparoscopic cholecystectomy tentatively tomorrow.
appreciate GI consult
suspected Choledocholithiasis (minimal by MRCP) but T bili rising to 7
ERCP today to rule out choledocho
NPO on IVF
Zosyn 3.37g Q6H started 05/26
#Moderate/Severe Aortic Stenosis
Monitor Daily Weights
Follows with Dr. REANNA Smyth as outpatient
appreciate cards recs:
Remains cardiovascular stable. Check echocardiogram today. Okay for ERCP without further testing. Okay for cholecystectomy in a.m. without further testing.
Echo ordered
#Essential Hypertension
Continue amlodipine 5mg QD with hold parameters
#Hyperlipidemia
Hold Zetia and simvastatin
#BPH
Continue Flomax 0.4mg QD
Monitor bladder scans
#COPD
Patient does not use any inhalers as outpatient
no acute exacerbation
DVT proph-- Lovenox
Code Status-- Full Code
Anticipated Discharge: > 48 hours
Subjective/Interval History
-
Mr Oliveira had NAEO and was seen at bedside with present. His pain control is better with the dialudid and reported abdominal pain decreasing to 4/10. He reports no other issues. He is awaiting ERCP today and echo.
Date of Service: May 28, 2025
Objective Data
-
Labs:
Laboratory Results
05/28/25
06:25
WBC 12.2 H
Hgb 13.9
Hct 41.3
Plt Count 195 D
PT 14.5
INR 1.10
APTT 39.5 H
Sodium 138
Potassium 4.2
Chloride 107
Carbon Dioxide 19 L
BUN 13
Creatinine 1.1
Glucose 100 H
Calcium 9.1
Total Bilirubin 4.4 H
AST 46
ALT 128 H
Alkaline Phosphatase 181 H
Vital Signs:
Vital Signs
Temp Pulse Resp BP Pulse Ox
98.8 F 103 18 140/87 98
05/28/25 07:42 05/28/25 07:42 05/28/25 07:42 05/28/25 07:42 05/28/25 08:00
I&O
05/27/25 05/28/25 05/29/25
06:59 06:59 06:59
Intake Total 2260 / 2260 1540 / 1540 1000 / 1000
Output Total 350 / 350
Balance 2260 / 2260 1190 / 1190 1000 / 1000
Review of Systems
-
History Source: Patient and Family
Constitutional: Reports No Symptoms; Denies Fever or Fatigue
EENT: Reports No Symptoms Reported; Denies Sore Throat
Respiratory: Reports No Symptoms; Denies Cough or Trouble Breathing
Cardiac: Reports No Symptoms; Denies Chest Pain or Palpitations
Abdomen/GI: Reports Abdominal Pain; Denies Nausea, Vomiting or Diarrhea
Genitourinary: Reports No Symptoms; Denies Dysuria
Skin: Reports No Symptoms; Denies Rash
Neuro: Denies Dizzy or Headache
Physical Exam
-
General: Well Developed, Well Nourished, No Apparent Distress and Comfortable
HEENT: Normocephalic and Atraumatic
Respiratory: Clear to Auscultation; Negative Wheezes or Rales
Cardiac: Regular Rhythm and S1/S2; Negative Murmur or Rub
GI: Soft and Tender (RUQ)
Musculoskeletal: No Clubbing, No Cyanosis and No Edema
Skin: Warm and Dry
Neuro: Awake, Alert and Oriented
--- NOTE | 2025-05-28 14:37 | CM ---
Patient seen at bedside with physicians on . Patient plan is for home with no needs at this time, pending surgery and further assessments. Patient family members present with him. CM will continue to follow for discharge planning needs.
Plan; home with no needs vs home with VN
[2025-05-28] MEDS: FLOMAX 0.4 MG PO (17:20)
[2025-05-28] MEDS: NORVASC 5 MG PO (17:21)
[2025-05-28] MEDS: LOVENOX 40 MG SC (17:21)
[2025-05-29] VITALS (13 sets, daily range): BP systolic 0–133; BP diastolic 57–73; BMI 23.7
[2025-05-29] MEDS: ZOSYN 50 IV ×4 (04:05→22:19)
[2025-05-29] MEDS: LR 1000 IV (06:13)
--- NOTE | 2025-05-29 07:01 | W.PN.GS2 ---
Today's Communication / Plan
-
-- Laparoscopic cholecystectomy with possible IOC
Assessment / Plan
-
Patient is a 84 yo M p/w choledocholithiasis
PPD#1 s/p ERCP with stone extraction and sphincterotomy
TTE (05/28): stable, EF 60-65%, moderate to severe
US and MRCP were reviewed.
AVSS
Labs pending
The natural history and pathophysiology of biliary and stone disease was reviewed. Workup thus far and treatments were reviewed. Role of cholecystectomy in preventing future episodes of cholecystitis or choledocholithiasis was reviewed. Recommend
and plan for cholecystectomy.
Plan for a laparoscopic cholecystectomy with possible cholangiogram. The procedure itself, as well as the risks, benefits, and alternatives was discussed. Specifically, we discussed the risks of bleeding, infection, injury to surrounding
structures (bowel, bile ducts), CBD injury, need for open procedure. We also reviewed his cardiovascular risk profile as a relates to anesthesia. He had a recent echo yesterday which was reviewed. Notes from cardiology were reviewed, which
provide clearance and risk assessment for his cholecystectomy. Typical postprocedure recovery including pain management and the 10 to 20% risks of fluctuations in GI function were discussed. All questions answered. Consent signed.
-- Laparoscopic cholecystectomy with possible IOC
-- NPO, IVF
-- Abx: Zosyn
Subjective Data
-
Date of Service: May 29, 2025
Reports doing well overall, continues to have some mild RUQ discomfort. Reports symptoms began on Wednesday last week before becoming more severe on Wednesday prompting presentation to the ED. Denies any prior attacks or knowledge of gallstones. No
fevers over past 24 hours. Denies CP or SOB.
Objective Data
-
Intake and Output
05/28/25 05/29/25 05/30/25
06:59 06:59 06:59
Intake Total 1540 / 1540 2300 / 2300
Output Total 350 / 350 50 / 50
Balance 1190 / 1190 2250 / 2250
Intake:
Oral fluids 480 / 480 240 / 240
IV fluids (Total) 960 / 960 1760 / 1760
IV piggybacks 100 / 100 300 / 300
Output:
Urine, Voided 350 / 350 50 / 50
Other:
Number of approximated SMALL 5 1
amounts of urine
Number of approximated MODERATE 8 1
amounts of urine
Number of approximated LARGE 2
amounts of urine
Vital Signs
Temp Pulse Resp BP Pulse Ox
97.3 F 89 18 102/64 95
05/28/25 23:00 05/28/25 23:00 05/28/25 23:00 05/28/25 23:00 05/28/25 23:00
Calcium 9.1 mg/dl (8.4-10.2) 05/28/25 06:25
Magnesium 1.6 mg/dl (1.6-2.3) 05/28/25 06:25
Total Bilirubin 4.4 mg/dl (0.2-1.3) H 05/28/25 06:25
Direct Bilirubin 5.0 mg/dl (0.0-0.4) H 05/27/25 04:28
AST 46 U/L (17-59) 05/28/25 06:25
ALT 128 U/L (0-50) H 05/28/25 06:25
Alkaline Phosphatase 181 U/L (38-126) H 05/28/25 06:25
Total Protein 5.9 g/dl (6.3-8.2) L 05/28/25 06:25
Albumin 3.4 g/dl (3.5-5.0) L 05/28/25 06:25
Physical Exam
-
Gen: NAD
Abd: soft, tender to palpation in RUQ, palpable GB, ND, non-peritoneal
Patient has a owens catheter: No
Patient has a central line: No
--- NOTE | 2025-05-29 07:13 | W.SUR.PREOP ---
Pre-Operative Surgical Note
-
I have examined this patient prior to the performance of the scheduled procedure.
The patient's condition is unchanged from the time of the current History and
Physical and the patient is able to undergo the scheduled procedure.
[2025-05-29 07:51] LABS: Hematocrit 37.9 % (39.0-52.0); Hemoglobin 12.8 g/dL (13.0-18.0); Mean Corp Hgb Conc. 33.8 g/dL (33.0-37.0); Mean Corpuscular Volume 86.5 fL (80.0-94.0); Platelet Count 171 10^3/uL (130-400); Red Cell Dist. Width 13.8 % (11.5-14.5)
[2025-05-29 08:24] LABS: ALT (SGPT) 73 U/L (0-50); AST (SGOT) 26 U/L (17-59); Albumin 2.7 g/dl (3.5-5.0); Alkaline Phosphatase 125 U/L (38-126); Blood Urea Nitrogen 26 mg/dl (9-20); Calcium 8.2 mg/dl (8.4-10.2); Carbon Dioxide 20 mmol/L (22-30); Chloride 110 mmol/L (98-107); Estimated Creatinine Clearance 32 ml/min; Glucose 84 mg/dl (70-99); Potassium 3.9 mmol/L (3.5-5.1); Sodium 140 mmol/L (135-145); Total Protein 5.2 g/dl (6.3-8.2); eGFR 39.75
--- NOTE | 2025-05-29 09:33 | W.PN.HOSP.TC ---
Addendum entered and electronically signed by Norma Dale MD 05/29/25 17:09:
I saw and evaluated the patient independently. I reviewed the resident�s note and agree with findings and plan as documented by Dr. Humphreys.
GENERAL: well developed, well nourished, male in no apparent distress
HEENT: NC/AT
HEART: regular rate and rhythm, +S1, +S2
LUNGS : clear to auscultation bilaterally
ABDOM: soft, post op with HI drain in place, nondistended, + bowel sounds
EXT: no cyanosis, clubbing, or edema
NEUROLOGIC: grossly intact
Acute Cholecystitis with suspected Choledocholithiasis --s/p ERCP with stone removed--apprec surgery/GI input--s/p lap jeff --appreg GI/surgery--clears
NICHOLE--likely from contrast for MRCP and ERCP--cont IVF--bladder scan shows no retention--if no better in AM, consult renal
Moderate/Severe Aortic Stenosis--Monitor Daily Weights--Follows with Dr. REANNA Smyth as outpatient--apprec cards for optimization prior to ERCP/surgery--repeat ECHO without change--still with preserved EF and mod-severe
Essential Hypertension--Continue amlodipine with hold parameters
Hyperlipidemia--Hold Zetia and simvastatin
BPH--Continue Flomax--Monitor bladder scans
Emphysema/COPD--Patient does not use any inhalers as outpatient--no acute exacerbation
DVT proph-- Lovenox
Code Status-- Full Code
Original Note:
Today's Communication/Plan
-
Gen surg performed cholecystectomy
recheck BMP
continue IVF
Assessment / Plan
Assessment / Plan
Dave is an 84-year-old male with history of hypertension, CKD3, moderate to severe aortic stenosis followed by Dr. Smyth, COPD who with upper abdominal pain but more concentrated in the right upper quadrant with MRCP consistent with
cholecystitis, unsure about choledocholithiasis. ERCP done and found choledocholithiasis, stone was removed. Patient was also evaluated by cardiology and cleared for cholecystectomy.
#Acute Cholecystitis
#Choledocholithiasis
Abd US showed distended CBD and intrahepatic duct
Gen surg consulted
N.p.o. at midnight, IV fluids, IV antibiotics.
Will plan for laparoscopic cholecystectomy tentatively tomorrow.
Cholecystectomy performed 05/29
- Abx for 4 days post-op
- Drain for at least 2 days post-op
- Monitor in hospital until at least POD#2
appreciate GI consult
suspected Choledocholithiasis (minimal by MRCP) but T bili rising to 7
ERCP 05/28 to rule out choledocho
NPO on IVF
Zosyn 3.37g Q6H started 05/26
#NICHOLE
Cr increase from 1.1 to 1.7 (05/29)
unlikely prerenal, pt receiving IVF,not on NSAIDs, possibly intrarenal, post renal (BPH)
Will bladder scan
recheck BMP
Consider UA, urine lytes, renal US
if not improving nephrology consult
#Moderate/Severe Aortic Stenosis
Monitor Daily Weights
Follows with Dr. REANNA Smyth as outpatient
appreciate cards recs:
Echo 05/28
EF 60-65%, mild concentric LVH, MAC, trace MR, moderate to severe mild AR, mild TR, PAP 36 mmHg, no significant change compared to prior
#Essential Hypertension
Continue amlodipine 5mg QD with hold parameters
#Hyperlipidemia
Hold Zetia and simvastatin
#BPH
Continue Flomax 0.4mg QD
Monitor bladder scans
#COPD
Patient does not use any inhalers as outpatient
no acute exacerbation
DVT proph
Lovenox
Code Status
Full Code
Anticipated Discharge: 24 - 48 hours
Subjective/Interval History
-
Patient seen at bedside after cholecystectomy, surgery went well without complications. Mr. Dunsker is doing well, mild abdominal tenderness. Reported no urinary issues. Last BM was several days ago. Date of Service: May 29, 2025
Objective Data
-
Labs:
Laboratory Results
05/29/25
07:11
WBC 11.4 H
Hgb 12.8 L
Hct 37.9 L
Plt Count 171
Sodium 140
Potassium 3.9
Chloride 110 H
Carbon Dioxide 20 L
BUN 26 H
Creatinine 1.7 H
Glucose 84
Calcium 8.2 L
Total Bilirubin 2.9 H
AST 26
ALT 73 H
Alkaline Phosphatase 125
Vital Signs:
Vital Signs
Temp Pulse Resp BP Pulse Ox
98.1 F 93 16 126/66 96
05/29/25 07:00 05/29/25 07:00 05/29/25 07:00 05/29/25 07:00 05/29/25 08:20
I&O
05/28/25 05/29/25 05/30/25
06:59 06:59 06:59
Intake Total 1540 / 1540 2300 / 2300
Output Total 350 / 350 50 / 50
Balance 1190 / 1190 2250 / 2250
Review of Systems
-
History Source: Patient and Family
Constitutional: Reports No Symptoms; Denies Fever or Fatigue
EENT: Reports No Symptoms Reported
Respiratory: Reports No Symptoms; Denies Cough or Trouble Breathing
Cardiac: Reports No Symptoms; Denies Chest Pain
Abdomen/GI: Reports Abdominal Pain (Lap sites CDI); Denies Nausea or Vomiting
Genitourinary: Reports No Symptoms
Physical Exam
-
General: Well Developed, Well Nourished and No Apparent Distress
HEENT: Normocephalic and Atraumatic
Respiratory: Clear to Auscultation; Negative Wheezes, Rales or Crackles
Cardiac: Regular Rhythm and S1/S2
GI: Soft, Nondistended and Tender (around incision sites, J drain present)
Musculoskeletal: No Clubbing, No Cyanosis and No Edema
Skin: Warm and Dry
Neuro: Awake, Alert and Oriented
--- NOTE | 2025-05-29 09:33 | W.IMMPOSTOP ---
Surgical Immed Post Op Note
-
Primary Surgeon: Sindhu
Assisting Surgeon: MARYLOU Jones
Pre-op Diagnosis: Choledocholithiasis
Post-op Diagnosis: Choledocholithiasis and cholecystitis
Procedure Performed: Laparoscopic cholecystectomy with IOC
Anesthesia Type: General
Specimen / Cultures:
1. Gallbladder
Estimated Blood Loss: 3 cc
Complications: None
Operative Findings:
1. Severely inflamed necrotic GB, perforation with bilious ascites from necrotic area at fundus, thickened wall, thin friable true wall, purulence with soft brown stones
2. Duct clearly identified with inferior 1/2 of GB taken off
3. IOC with anatomy confirmed
4. Artery taken with clips, duct with clips and Endoloop
5. 19 Fr Carlos drain into operative field
Plan:
-- Abx for 4 days post-op
-- Drain for at least 2 days post-op
-- Monitor in hospital until at least POD#2
--- NOTE | 2025-05-29 12:28 | W.PN.CARDCBS ---
Addendum entered and electronically signed by Deyvi Call DO 05/29/25 14:42:
I saw and examined the patient.
The Director Of Reimbursement's note was reviewed and I agree with the note.
Comment:
General: No acute distress, [id number]
Neck: Negative JVD
Heart: Regular, Negative S3 positive S1/S2, Negative S4, systolic ejection murmur grade II/
Lungs: CTA b/l, negative wheezes/rales/rhonchi
Abd: Positive BS, NT/ND, neg rebound/rigidity/guarding
Ext: Negative cyanosis/clubbing/edema
Neuro: nonfocal
Plan:
Cont post op care
HR and bp stable
Tele for 24 hrs
Stable cv status
Outpt follow up of mod to severe
Cr up slightly, eval as per primary service.
Discussed with family at bedside and nursing.
Will follow peripherally.
Original Note:
Today's Communication / Plan
-
post op care
follow on tele for 24 hours
OP follow up of mod to severe
Impression / Plan
-
PCP: Dr. Rocha
Cardiology: Dr. REANNA Smyth
Impression:
Abdominal pain
Acute cholecystitis
Mod-severe by echo 11/2024
CKD 3
HTN
Hyperlipidemia
Echo 11/25/2023: EF 55-60%, mild MR, mild to mod with peak/mean 35/24 mmHg and AISSATOU 1.1-1.2 cm sq, mild aortic regurgitation, normal aortic root and proximal ascending aorta size
Echo 11/30/2024: EF 55-60%, mild cLVH, trace MR, moderate-severe with peak/mean gradients 54/32 mmHg, mild TR, estimated PAP 26 mmHg
Echo 05/28/2025: EF 60-65%, mild concentric LVH, MAC, trace MR, moderate to severe with peak/mean gradient 63/37 mmHg, AISSATOU 1.0 cm�, mild AR, mild TR, PAP 36 mmHg, no significant change compared to prior
Plan:
-Presented with abdominal pain. Admitted with acute cholecystitis.
-s/p lap jeff 05/29.
-remains without CP or SOB
-BPs stable. continue OP norvasc
-echo stable compared to prior, mod to severe with preserved EF
-given known mod to severe , will plan for monitoring on tele post op for 24 hours
-continue post op care
-Cr bumped to 1.7 overnight. for repeat this afternoon. mgmt per primary service
-will arrange OP cardiac follow up
Progress Note - Machine [employer] Eng[employer]
Subjective
Date of Service: May 29, 2025
no CP or SOB
Objective
Labs:
05/29/25 07:11
05/29/25 07:11
Labs
Hgb 12.8 g/dL (13.0-18.0) L 05/29/25 07:11
Hct 37.9 % (39.0-52.0) L 05/29/25 07:11
Plt Count 171 10^3/uL (130-400) 05/29/25 07:11
PT 14.5 Sec (11.4-14.6) 05/28/25 06:25
INR 1.10 05/28/25 06:25
APTT 39.5 Sec (23.4-35.0) H 05/28/25 06:25
Sodium 140 mmol/L (135-145) 05/29/25 07:11
Potassium 3.9 mmol/L (3.5-5.1) 05/29/25 07:11
BUN 26 mg/dl (9-20) H 05/29/25 07:11
Creatinine 1.7 mg/dL (0.7-1.3) H 05/29/25 07:11
Glucose 84 mg/dl (70-99) 05/29/25 07:11
Vital Signs and I&O:
Vital Signs
Temp Pulse Resp BP Pulse Ox
98.1 F 89 18 120/64 96
05/29/25 11:49 05/29/25 11:49 05/29/25 11:49 05/29/25 11:49 05/29/25 11:49
Vital Signs
Temp Pulse Resp BP Pulse Ox
98.1 F 89 18 120/64 96
05/29/25 11:49 05/29/25 11:49 05/29/25 11:49 05/29/25 11:49 05/29/25 11:49
Intake & Output
05/27/25 05/28/25 05/29/25 05/30/25
07:59 07:59 07:59 07:59
Intake Total 2260 / 2260 2440 / 2440 1400 / 1400 50 / 50
Output Total 350 / 350 50 / 50 0 / 0
Balance 2260 / 2260 2090 / 2090 1350 / 1350 50 / 50
[2025-05-29 13:54] LABS: Blood Urea Nitrogen 29 mg/dl (9-20); Calcium 7.6 mg/dl (8.4-10.2); Carbon Dioxide 18 mmol/L (22-30); Chloride 108 mmol/L (98-107); Estimated Creatinine Clearance 32 ml/min; Glucose 106 mg/dl (70-99); Potassium 4.2 mmol/L (3.5-5.1); Sodium 138 mmol/L (135-145); eGFR 39.75
--- NOTE | 2025-05-29 14:15 | W.PN.GI.CBS2 ---
Today's Communication / Plan
-
As per internal medicine and general surgery.
GI signing off
Assessment / Plan
-
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 Reed, hypertension, CKD, moderate to severe aortic stenosis followed by Dr. Smyth, prior appy, COPD who presented to the emergency room on 05/25/2025
with upper abdominal pain but more concentrated in the right upper quadrant with MRCP consistent with choledocholithiasis and cholecystitis with bilirubin climbing now to 7
05/27/25 MRCP -+ cholecystitis - gallbladder wall thickening pericholecystic fluid distended gallbladder with stones impacted at the gallbladder neck. No intrahepatic ductal dilatation. Common bile duct 7 mm with small filling defects in the
distal common bile duct.
05/28/2025 ERCP:
- A filling defect consistent with a stone was seen on
the cholangiogram.
- The common bile duct was dilated.
- Choledocholithiasis was found. Complete removal was
accomplished by biliary sphincterotomy and balloon
extraction.
- A biliary sphincterotomy was performed.
- The biliary tree was swept.
Impression:
Choledocholithiasis with acute cholecystitis
--s/p ERCP with pancreatomy, balloon sweep and stone extraction 05/28/2025
-- Status postcholecystectomy with intraoperative cholangiogram
Moderate to severe aortic stenosis -followed by Dr. Smyth.
12/2024: ECHO LV is small in size. Mild concentric LV hypertrophy. NL systolic function. LVEF is 55-60%. NL diastolic function. Mildly enlarged RV size and function. NL LA with a volume within NL range. RA is of NL size as is the IVC. Thickened MV
leaflets. Mitral annular calcification. Trace MR. Aortic annular calcification. Thickened AV with restricted leaflet motion. Peak/mean gradients across the AV are 54/32 mmHg, respectively. Using an LVOT of 2.1 cm the valve area by the Continuity
equation is 0.8 cm2. Moderate to severe aortic stenosis. Mild AR. Mild TR with an estimated pulmonary artery pressure of 26 mmHg. NL PV. Aortic root and aortic arch are NL in caliber.
Dr. Reed and is to undergo a dysplastic transanal rectal polyp removal next month
Plan:
- Antibiotics per surgery
- As per surgery and internal medicine.
-Patient placed on clear liquid diet as per surgery.
- At this point GI will sign off. Please call back if we can be of further assistance.
Subjective
Subjective
Date of Service: May 29, 2025
Patient status post cholecystectomy. Feeling well. Only mild incisional tenderness. Pain he presented with is resolved. LFTs trending down. Patient status post ERCP with sphincterotomy, balloon sweep and stone extraction on 05/28/25.
Objective
Data Reviewed
Laboratory Data:
Laboratory Results
05/29/25 07:11
05/29/25 13:06
Laboratory Results
PT 14.5 Sec (11.4-14.6) 05/28/25 06:25
INR 1.10 05/28/25 06:25
APTT 39.5 Sec (23.4-35.0) H 05/28/25 06:25
Magnesium 1.6 mg/dl (1.6-2.3) 05/28/25 06:25
Total Bilirubin 2.9 mg/dl (0.2-1.3) H 05/29/25 07:11
AST 26 U/L (17-59) 05/29/25 07:11
ALT 73 U/L (0-50) H 05/29/25 07:11
Alkaline Phosphatase 125 U/L (38-126) 05/29/25 07:11
Lipase 32 U/L (23-300) 05/28/25 06:25
Vital Signs and I&O:
Vital Signs
Temp Pulse Resp BP Pulse Ox
97.8 F 96 16 118/71 96
05/29/25 12:45 05/29/25 12:45 05/29/25 12:45 05/29/25 12:45 05/29/25 12:45
I&O
05/28/25 05/29/25 05/30/25
06:59 06:59 06:59
Intake Total 1540 / 1540 2300 / 2300 50 / 50
Output Total 350 / 350 50 / 50 0 / 0
Balance 1190 / 1190 2250 / 2250 50 / 50
Physical Exam
Physical Exam
HEENT: Anicteric
Cardiology: Normal Sinus Rhythm
Pulmonary: Clear (anterior)
GI: Soft, Non Distended, Tender (mild expected incisional tenderness) and Normal Bowel Sounds
Neuro: Non Focal
--- NOTE | 2025-05-29 14:24 | PTCARENOTE ---
Bladder scan prior to voiding is 245. Voided 225 dark kavitha urine. Post void bladder scan read 6mls.
--- NOTE | 2025-05-29 15:32 | CM ---
Patient seen at bedside with physicians today on . Patient s/p procedure with HI drain and may benefit from VN supports at discharge. CM will continue to follow for discharge planning needs.
Plan; home with VN pending medical treatment plans.
[2025-05-29] MEDS: NORVASC 5 MG PO (17:40)
[2025-05-29] MEDS: LOVENOX 40 MG SC (17:40)
[2025-05-29] MEDS: FLOMAX 0.4 MG PO (17:40)
[2025-05-30] MEDS: LR 1000 IV ×2 (01:05→14:35)
[2025-05-30 03:10] VITALS: BP 124/66
[2025-05-30] MEDS: ZOSYN 50 IV ×3 (04:47→17:33)
[2025-05-30 06:00] VITALS: BMI 24.4
[2025-05-30 07:38] VITALS: BP 125/66
[2025-05-30 07:49] LABS: Hematocrit 38.3 % (39.0-52.0); Hemoglobin 12.9 g/dL (13.0-18.0); Mean Corp Hgb Conc. 33.7 g/dL (33.0-37.0); Mean Corpuscular Volume 87.6 fL (80.0-94.0); Platelet Count 221 10^3/uL (130-400); Red Cell Dist. Width 14.2 % (11.5-14.5)
[2025-05-30 08:16] LABS: ALT (SGPT) 61 U/L (0-50); AST (SGOT) 31 U/L (17-59); Albumin 2.8 g/dl (3.5-5.0); Alkaline Phosphatase 109 U/L (38-126); Blood Urea Nitrogen 38 mg/dl (9-20); Calcium 8.3 mg/dl (8.4-10.2); Carbon Dioxide 19 mmol/L (22-30); Chloride 110 mmol/L (98-107); Estimated Creatinine Clearance 31 ml/min; Glucose 105 mg/dl (70-99); Potassium 4.1 mmol/L (3.5-5.1); Sodium 139 mmol/L (135-145); Total Protein 5.3 g/dl (6.3-8.2); eGFR 37.12
--- NOTE | 2025-05-30 10:59 | W.PN.GS2 ---
Today's Communication / Plan
-
-- Low fat diet
-- Pain control: Tylenol, Oxycodone, avoid NSAIDs with NICHOLE
-- Axb: Zosyn, would plan on 4 days post-op abx
-- DVT: Switch from Lovenox to SQH with NICHOLE
-- Maintain HI drain, likely DC on DC
Assessment / Plan
-
Patient is a 84 yo M p/w choledocholithiasis
PPD#2 s/p ERCP with stone extraction and sphincterotomy
POD#1 s/p laparoscopic cholecystectomy with IOC
TTE (05/28): stable, EF 60-65%, moderate to severe
US and MRCP were reviewed.
AVSS
Labs notable for normalized WBC, stable Hb, down trending bilirubin and LFTs, Cr stable slightly up
Recovering well. No postoperative concerns from a surgical perspective. Plan to monitor in the hospital today for drain management and additional IV antibiotics. Tentative plan for discharge tomorrow from a surgical perspective.
-- Low fat diet
-- Pain control: Tylenol, Oxycodone, avoid NSAIDs with NICHOLE
-- Axb: Zosyn, would plan on 4 days post-op abx
-- DVT: Switch from Lovenox to SQH with NICHOLE
-- Maintain HI drain, likely DC on DC
Subjective Data
-
Date of Service: May 30, 2025
No complaints. Pain well-controlled. No nausea or vomiting. Passing flatus. Afebrile.
Objective Data
-
Intake and Output
05/29/25 05/30/25 05/31/25
06:59 06:59 06:59
Intake Total 2300 / 2300 2069 / 2069
Output Total 50 / 50 795 / 795
Balance 2250 / 2250 1275 / 1275
Intake:
Oral fluids 240 / 240 960 / 960
IV fluids (Total) 1760 / 1760 1010 / 1010
normasol 50 / 50
IV piggybacks 300 / 300 100 / 100
Output:
Drain Output (Total)
Right Abdomen [facility]
Urine, Voided 725 / 725
Other:
Number of approximated SMALL 1
amounts of urine
Number of approximated MODERATE 1
amounts of urine
Number of approximated LARGE 2 3
amounts of urine
Vital Signs
Temp Pulse Resp BP Pulse Ox
98.4 F 83 18 125/66 96
05/30/25 07:38 05/30/25 07:38 05/30/25 07:38 05/30/25 07:38 05/30/25 08:10
Lab Results
05/30/25 06:31
05/30/25 06:31
Calcium 8.3 mg/dl (8.4-10.2) L 05/30/25 06:31
Magnesium 1.6 mg/dl (1.6-2.3) 05/28/25 06:25
Total Bilirubin 1.5 mg/dl (0.2-1.3) H D 05/30/25 06:31
Direct Bilirubin 1.9 mg/dl (0.0-0.4) H 05/29/25 07:11
AST 31 U/L (17-59) 05/30/25 06:31
ALT 61 U/L (0-50) H 05/30/25 06:31
Alkaline Phosphatase 109 U/L (38-126) 05/30/25 06:31
Total Protein 5.3 g/dl (6.3-8.2) L 05/30/25 06:31
Albumin 2.8 g/dl (3.5-5.0) L 05/30/25 06:31
Physical Exam
-
Gen: NAD
Abd: soft, NT, ND, non-peritoneal, incisions c/d/i - no erythema, ecchymosis or drainage, HI serosang, non-bilious
Patient has a owens catheter: No
Patient has a central line: No
[2025-05-30 11:29] VITALS: BP 132/71
--- NOTE | 2025-05-30 14:22 | W.PN.HOSP.TC ---
Addendum entered and electronically signed by Nroma Dale MD 05/30/25 15:37:
I saw and evaluated the patient independently. I reviewed the resident�s note and agree with findings and plan as documented by Dr. Humphreys.
GENERAL: well developed, well nourished, male in no apparent distress
HEENT: NC/AT
HEART: regular rate and rhythm, +S1, +S2
LUNGS : clear to auscultation bilaterally
ABDOM: soft, post op with HI drain in place, nondistended, + bowel sounds
EXT: no cyanosis, clubbing, or edema
NEUROLOGIC: grossly intact
Acute Cholecystitis with suspected Choledocholithiasis --s/p ERCP with stone removed--apprec surgery/GI input--s/p lap jeff on 05/29/25 --appreg GI/surgery--clears
NICHOLE--likely from contrast for MRCP and ERCP--cont IVF--bladder scan shows no retention-- no better-- consult renal--check UA, urine lytes, renal US--agree with renal dosing meds
Moderate/Severe Aortic Stenosis--Monitor Daily Weights--Follows with Dr. REANNA Smyth as outpatient--apprec cards for optimization prior to ERCP/surgery--repeat ECHO without change--still with preserved EF and mod-severe
Essential Hypertension--Continue amlodipine with hold parameters
Hyperlipidemia--Hold Zetia and simvastatin
BPH--Continue Flomax--Monitor bladder scans
Emphysema/COPD--Patient does not use any inhalers as outpatient--no acute exacerbation
DVT proph-- Lovenox
Code Status-- Full Code
Original Note:
Today's Communication/Plan
-
Diet advanced per gen surgery
nephrology consult
urine lytes
Renal US
UA
Assessment / Plan
Assessment / Plan
Dave is an 84-year-old male with history of hypertension, CKD3, moderate to severe aortic stenosis followed by Dr. Smyth, COPD who with upper abdominal pain but more concentrated in the right upper quadrant with MRCP consistent with
cholecystitis, unsure about choledocholithiasis. ERCP done and found choledocholithiasis, stone was removed. Patient was also evaluated by cardiology and cleared for cholecystectomy. Cholecystectomy performed 05/29 without issues. Patient developed
NICHOLE on 05/29 likely contrast induced from GI procedures. Nephrology was consulted to explore etiology after Cr increased on 05/30. Patient started advancing diet to soft foods.
#Acute Cholecystitis
#Choledocholithiasis
Abd US showed distended CBD and intrahepatic duct
Gen surg consulted
Cholecystectomy performed 05/29
- Abx for 4 days post-op, Zosyn 3.37g Q6H started 05/26, stop 06/02 (POD 4)
- Drain for at least 2 days post-op
- Monitor in hospital until at least POD#2
appreciate GI recs
suspected Choledocholithiasis (minimal by MRCP) but T bili rising to 7
ERCP 05/28 found choledocholithiasis
Diet advanced per gen surgery
#NICHOLE
Cr increase from 1.1 to 1.7 (05/29)
likely prerenal despite pt receiving IVF not on NSAIDs but did receive contrast on the same day, cannot exclude intrarenal causes
bladder scan with 25ml PVR, no retention noted, unlikely post renal
recheck BMP with Cr 1.7
UA, urine lytes, renal US ordered
nephrology consult 05/30
#Moderate/Severe Aortic Stenosis
Monitor Daily Weights
Follows with Dr. REANNA Smyth as outpatient
appreciate cards recs:
Echo 05/28
EF 60-65%, mild concentric LVH, MAC, trace MR, moderate to severe mild AR, mild TR, PAP 36 mmHg, no significant change compared to prior
#Essential Hypertension
Continue amlodipine 5mg QD with hold parameters
#Hyperlipidemia
Hold Zetia and simvastatin
#BPH
Continue Flomax 0.4mg QD
Monitor bladder scans
#COPD
Patient does not use any inhalers as outpatient
no acute exacerbation
DVT proph
Lovenox
Code Status
Full Code
Anticipated Discharge: 24 - 48 hours
Subjective/Interval History
-
Patient seen today at bedside. He had some mild confusion last night that resolved, it was likely related to anesthetics from surgery. At baseline this morning with no complaints. Reports no shortness of breathe no chest pain no issues urinating.
Patient repeat Cr yesterday showed sustain elevation, he does not report seeing a census taker for any kidney condition. Date of Service: May 30, 2025
Objective Data
-
Labs:
Laboratory Results
05/30/25 05/30/25
06:31 14:14
WBC 10.4
Hgb 12.9 L
Hct 38.3 L
Plt Count 221 D
Sodium 139 Pending
Potassium 4.1 Pending
Chloride 110 H Pending
Carbon Dioxide 19 L Pending
BUN 38 H Pending
Creatinine 1.8 H Pending
Glucose 105 H Pending
Calcium 8.3 L Pending
Total Bilirubin 1.5 H D
AST 31
ALT 61 H
Alkaline Phosphatase 109
Vital Signs:
Vital Signs
Temp Pulse Resp BP Pulse Ox
98.1 F 92 16 132/71 93
05/30/25 11:29 05/30/25 11:29 05/30/25 11:29 05/30/25 11:29 05/30/25 11:29
I&O
05/29/25 05/30/25 05/31/25
06:59 06:59 06:59
Intake Total 2300 / 2300 2069 / 2069
Output Total 50 / 50 795 / 795
Balance 2250 / 2250 1275 / 1275
Review of Systems
-
History Source: Patient and Family
Constitutional: Reports No Symptoms; Denies Fever or Fatigue
EENT: Reports No Symptoms Reported; Denies Sore Throat or Runny Nose
Respiratory: Reports No Symptoms; Denies Cough or Trouble Breathing
Cardiac: Reports No Symptoms; Denies Chest Pain or Palpitations
Abdomen/GI: Reports No Symptoms; Denies Abdominal Pain or Vomiting
Genitourinary: Reports No Symptoms; Denies Dysuria, Frequency, Flank Pain or Difficulty Voiding
Musculoskeletal: Reports No Symptoms
Neuro: Reports No Symptoms; Denies Dizzy, Headache or Weakness
Physical Exam
-
General: Well Developed, Well Nourished, No Apparent Distress and Comfortable
HEENT: Normocephalic and Atraumatic
Respiratory: Clear to Auscultation; Negative Wheezes or Crackles
Cardiac: Regular Rhythm and S1/S2; Negative Murmur
GI: Soft, Nontender, Nondistended and Normal Bowel Sounds
Musculoskeletal: No Clubbing, No Cyanosis and No Edema
Skin: Warm
Neuro: Awake, Alert, Oriented and AO x 3
[2025-05-30] MEDS: LR IV (14:35)
[2025-05-30 15:11] LABS: Urine Character Slightly Cloudy (Clear)
[2025-05-30 15:16] LABS: Blood Urea Nitrogen 40 mg/dl (9-20); Calcium 8.2 mg/dl (8.4-10.2); Carbon Dioxide 24 mmol/L (22-30); Chloride 107 mmol/L (98-107); Estimated Creatinine Clearance 29 ml/min; Glucose 110 mg/dl (70-99); Potassium 3.9 mmol/L (3.5-5.1); Sodium 137 mmol/L (135-145); eGFR 34.79
[2025-05-30 15:18] LABS: Urine Squamous Cell 0-2 /LPF (Few); Urine Urothelial Cell 0-2 /LPF (FEW)
[2025-05-30 15:21] VITALS: BP 128/69
[2025-05-30] MEDS: NORVASC 5 MG PO (17:33)
[2025-05-30] MEDS: FLOMAX 0.4 MG PO (17:33)
[2025-05-30 19:14] VITALS: BP 113/62
--- NOTE | 2025-05-30 22:15 | W.PN.CARDCBS ---
Today's Communication / Plan
-
Supportive postop care
Outpatient cardiac follow-up to be arranged
Will sign off, recall if needed
Impression / Plan
-
PCP: Dr. Rocha
Cardiology: Dr. REANNA Smyth
Impression:
Abdominal pain
Acute cholecystitis
Mod-severe by echo 11/2024
CKD 3
HTN
Hyperlipidemia
Echo 11/25/2023: EF 55-60%, mild MR, mild to mod with peak/mean 35/24 mmHg and AISSATOU 1.1-1.2 cm sq, mild aortic regurgitation, normal aortic root and proximal ascending aorta size
Echo 11/30/2024: EF 55-60%, mild cLVH, trace MR, moderate-severe with peak/mean gradients 54/32 mmHg, mild TR, estimated PAP 26 mmHg
Echo 05/28/2025: EF 60-65%, mild concentric LVH, MAC, trace MR, moderate to severe with peak/mean gradient 63/37 mmHg, AISSATOU 1.0 cm�, mild AR, mild TR, PAP 36 mmHg, no significant change compared to prior
Plan:
Acute cholecystitis with suspected Choledocholithiasis s/p ERCP with stone removval, s/p lap jeff on 05/29/25
-Hemodynamically stable
-GI and surgery consulted managing postop
-Diet being advanced by surgery
-Incentive spirometry instructions provided and use encouraged
-Cardiac status stable
-Outpatient cardiac follow-up to be arranged
-Will sign off, recall if needed
Progress Note - Component Technician
Subjective
Date of Service: May 30, 2025
Seen and examined with at bedside. Offers no complaints and tolerating diet. No chest pain or pressure. No shortness of breath. No dizziness. Passing gas
Objective
Labs:
05/30/25 06:31
05/30/25 14:41
Labs
Hgb 12.9 g/dL (13.0-18.0) L 05/30/25 06:31
Hct 38.3 % (39.0-52.0) L 05/30/25 06:31
Plt Count 221 10^3/uL (130-400) D 05/30/25 06:31
PT 14.5 Sec (11.4-14.6) 05/28/25 06:25
INR 1.10 05/28/25 06:25
APTT 39.5 Sec (23.4-35.0) H 05/28/25 06:25
Sodium 137 mmol/L (135-145) 05/30/25 14:41
Potassium 3.9 mmol/L (3.5-5.1) 05/30/25 14:41
BUN 40 mg/dl (9-20) H 05/30/25 14:41
Creatinine 1.9 mg/dL (0.7-1.3) H 05/30/25 14:41
Glucose 110 mg/dl (70-99) H 05/30/25 14:41
Vital Signs and I&O:
Vital Signs
Temp Pulse Resp BP Pulse Ox
97.8 F 95 19 113/62 91
05/30/25 19:14 05/30/25 19:14 05/30/25 19:14 05/30/25 19:14 05/30/25 19:14
Vital Signs
Temp Pulse Resp BP Pulse Ox
97.8 F 95 19 113/62 91
05/30/25 19:14 05/30/25 19:14 05/30/25 19:14 05/30/25 19:14 05/30/25 19:14
Intake & Output
05/28/25 05/29/25 05/30/25 05/31/25
06:59 06:59 06:59 06:59
Intake Total 1540 / 1540 2300 / 2300 2070 / 2070 1640 / 1640
Output Total 350 / 350 50 / 50 795 / 795 120 / 120
Balance 1190 / 1190 2250 / 2250 1275 / 1275 1520 / 1520
Physical Exam
Physical Exam
GEN: No distress, awake, alert, oriented x3
HEENT: mmm
LUNGS: CTA b/l, no wheezes/rales
CV: Reg, S1/S2, 2/6 syst murmur
GI: Distended, mild tenderness. Positive drain. Positive bowel sounds
EXT: No clubbing, cyanosis, or edema
NEURO: Gross non-focal
[2025-05-30] MEDS: HEPARIN 5000 UNITS SC (22:28)
[2025-05-30 23:30] VITALS: BP 113/63
[2025-05-31] MEDS: ZOSYN 50 IV ×3 (01:06→11:26)
[2025-05-31 03:57] VITALS: BP 144/74
[2025-05-31] MEDS: LR 1000 IV ×2 (04:06→11:26)
[2025-05-31 06:00] VITALS: BMI 24.7
[2025-05-31 06:41] LABS: Hematocrit 35.4 % (39.0-52.0); Hemoglobin 11.8 g/dL (13.0-18.0); Mean Corp Hgb Conc. 33.3 g/dL (33.0-37.0); Mean Corpuscular Volume 88.9 fL (80.0-94.0); Platelet Count 229 10^3/uL (130-400); Red Cell Dist. Width 14.0 % (11.5-14.5)
[2025-05-31 07:19] LABS: Blood Urea Nitrogen 37 mg/dl (9-20); Calcium 8.4 mg/dl (8.4-10.2); Carbon Dioxide 23 mmol/L (22-30); Chloride 111 mmol/L (98-107); Estimated Creatinine Clearance 31 ml/min; Glucose 96 mg/dl (70-99); Potassium 3.7 mmol/L (3.5-5.1); Sodium 140 mmol/L (135-145); eGFR 37.12
--- NOTE | 2025-05-31 07:47 | W.PN.GS2 ---
Today's Communication / Plan
-
-- Abx: Zosyn, would plan on 4 days post-op abx
-- HI removed
-- DC instructions updated
-- F/u in 2-4 weeks
-- Call with questions or concerns
Assessment / Plan
-
Patient is a 84 yo M p/w choledocholithiasis
PPD#3 s/p ERCP with stone extraction and sphincterotomy
POD#2 s/p laparoscopic cholecystectomy with IOC
TTE (05/28): stable, EF 60-65%, moderate to severe
AVSS
Labs normal WBC, stable Hb, Cr remains up
No postoperative concerns from a surgical perspective. HI drain removed. Continue with abx for 4 days post-op (IV while inpatient PO as outpatient).
Renal consult for NICHOLE noted
-- Renal consult noted
-- Low fat diet
-- Pain control: Tylenol, Oxycodone, avoid NSAIDs with NICHOLE
-- Abx: Zosyn, would plan on 4 days post-op abx
-- DVT: Switch from Lovenox to SQH with NICHOLE
-- HI removed
-- DC instructions updated
-- F/u in 2-4 weeks
-- Call with questions or concerns
Subjective Data
-
Date of Service: May 31, 2025
No complaints. Pain well controlled. No reports of loose stools or crampy pain. Tolerating diet - no nausea or emesis. No fevers.
Objective Data
-
Intake and Output
05/30/25 05/31/25 06/01/25
06:59 06:59 06:59
Intake Total 2069 188 / 188
Output Total 795 / 795 560 / 560
Balance 1275 / 1275 1320 / 1320
Intake:
Oral fluids 960 / 960 900 / 900
IV fluids (Total) 1010 / 1010 880 / 880
normasol 50 / 50
IV piggybacks 100 / 100 100 / 100
Output:
Drain Output (Total) 70 / 60 / 60
Right Abdomen [facility] 70 / 70 60 / 60
Urine, Voided 725 / 725 500 / 500
Other:
Number of approximated LARGE 3 3
amounts of urine
Vital Signs
Temp Pulse Resp BP Pulse Ox
97.5 F 85 19 144/74 96
05/31/25 03:57 05/31/25 03:57 05/31/25 03:57 05/31/25 03:57 05/31/25 03:57
Lab Results
05/31/25 06:09
05/31/25 06:09
Calcium 8.4 mg/dl (8.4-10.2) 05/31/25 06:09
Magnesium 1.6 mg/dl (1.6-2.3) 05/28/25 06:25
Total Bilirubin 1.5 mg/dl (0.2-1.3) H D 05/30/25 06:31
Direct Bilirubin 1.9 mg/dl (0.0-0.4) H 05/29/25 07:11
AST 31 U/L (17-59) 05/30/25 06:31
ALT 61 U/L (0-50) H 05/30/25 06:31
Alkaline Phosphatase 109 U/L (38-126) 05/30/25 06:31
Total Protein 5.3 g/dl (6.3-8.2) L 05/30/25 06:31
Albumin 2.8 g/dl (3.5-5.0) L 05/30/25 06:31
Physical Exam
-
Gen: NAD
Abd: soft, mild tenderness, ND, non-peritoneal, incisions c/d/i - no erythema, ecchymosis or drainage, HI serosang
Patient has a owens catheter: No
Patient has a central line: No
[2025-05-31 07:55] VITALS: BP 138/77
[2025-05-31] MEDS: HEPARIN 5000 UNITS SC (08:43)
--- NOTE | 2025-05-31 10:24 | W.PN.HOSP.TC ---
Addendum entered and electronically signed by Norma Dale MD 05/31/25 14:46:
I saw and evaluated the patient independently. I reviewed the resident�s note and agree with findings and plan as documented by Dr. Humphreys.
GENERAL: well developed, well nourished, male in no apparent distress
HEENT: NC/AT
HEART: regular rate and rhythm, +S1, +S2
LUNGS : clear to auscultation bilaterally
ABDOM: soft, post op with HI drain in place, nondistended, + bowel sounds
EXT: no cyanosis, clubbing, or edema
NEUROLOGIC: grossly intact
Acute Cholecystitis with suspected Choledocholithiasis --s/p ERCP with stone removed--apprec surgery/GI input--s/p lap jeff on 05/29/25 --appreg GI/surgery--tolerated diet
NICHOLE--likely from contrast for MRCP and ERCP--cont IVF--bladder scan shows no retention-- no better--apprec renal--creat seems to have plateaued--cleared for d/c by renal--labs on Wednesday--script given to pt
Moderate/Severe Aortic Stenosis--Monitor Daily Weights--Follows with Dr. REANNA Smyth as outpatient--apprec cards for optimization prior to ERCP/surgery--repeat ECHO without change--still with preserved EF and mod-severe
Essential Hypertension--Continue amlodipine with hold parameters
Hyperlipidemia--Hold Zetia and simvastatin
BPH--Continue Flomax--Monitor bladder scans
Emphysema/COPD--Patient does not use any inhalers as outpatient--no acute exacerbation
DVT proph-- Lovenox
Code Status-- Full Code
Original Note:
Today's Communication/Plan
-
lovenox switched to SQ heparin
awaiting nephro consult
UA, urine lytes, renal US pointing to pre renal cause
Assessment / Plan
Assessment / Plan
Dave is an 84-year-old male with history of hypertension, CKD3, moderate to severe aortic stenosis followed by Dr. Smyth, COPD who with upper abdominal pain but more concentrated in the right upper quadrant with MRCP consistent with
cholecystitis, unsure about choledocholithiasis. ERCP done and found choledocholithiasis, stone was removed. Patient was also evaluated by cardiology and cleared for cholecystectomy. Cholecystectomy performed 05/29 without issues, HI drain placed and
antibiotics were continued. Patient developed NICHOLE on 05/29 likely contrast induced from GI procedures. Nephrology was consulted to explore etiology after Cr increased on 05/30. Patient started advancing diet to soft foods and HI drain was removed. Cr
peaked at 1.9, UA urine lytes, urine culture and renal US pointing to pre renal cause.
#Acute Cholecystitis
#Choledocholithiasis
Abd US showed distended CBD and intrahepatic duct
Gen surg consulted
Cholecystectomy performed 05/29
- Abx for 4 days post-op, Zosyn 3.37g Q6H started 05/26, stop 06/02 (POD 4)
- Drain for at least 2 days post-op, HI drain removed 05/31
- Monitor in hospital until at least POD#2
appreciate GI recs
suspected Choledocholithiasis (minimal by MRCP) but T bili rising to 7
ERCP 05/28 found choledocholithiasis, stone extracted
Diet advanced per gen surgery
#NICHOLE
Cr increase from 1.1 to 1.7 (05/29)
likely prerenal despite pt receiving IVF not on NSAIDs but did receive contrast on the same day, cannot exclude intrarenal causes
bladder scan with 25ml PVR, no retention noted, unlikely post renal
recheck BMP with Cr 1.7--1.8--1.9--1.8
UA positive for RBC, moderate bacteria, no growth on cultures
urine lytes FENa 0.7, pointing to prerenal
renal US 05/30, no hydronephrosis seen or dilation of ureters, multiple renal cysts
nephrology consult 05/30
#Moderate/Severe Aortic Stenosis
Monitor Daily Weights
Follows with Dr. ERANNA Smyth as outpatient
appreciate cards recs:
Echo 05/28
EF 60-65%, mild concentric LVH, MAC, trace MR, moderate to severe mild AR, mild TR, PAP 36 mmHg, no significant change compared to prior
#Essential Hypertension
Continue amlodipine 5mg QD with hold parameters
#Hyperlipidemia
Hold Zetia and simvastatin
#BPH
Continue Flomax 0.4mg QD
Monitor bladder scans
#COPD
Patient does not use any inhalers as outpatient
no acute exacerbation
DVT proph
Lovenox swithced to SQ heparin due to NICHOLE
Code Status
Full Code
Anticipated Discharge: Within 24 hours
Subjective/Interval History
-
Mr Chavez was doing well this AM. He reports no issues overnight, HI drain was removed this AM and he was able to stool. He reports no issues urinating, shortness of breath, or chest pain. Date of Service: May 31, 2025
Objective Data
-
Labs:
Laboratory Results
05/31/25
06:09
WBC 8.4
Hgb 11.8 L
Hct 35.4 L
Plt Count 229
Sodium 140
Potassium 3.7
Chloride 111 H
Carbon Dioxide 23
BUN 37 H
Creatinine 1.8 H
Glucose 96
Calcium 8.4
Vital Signs:
Vital Signs
Temp Pulse Resp BP Pulse Ox
98.6 F 82 14 138/77 93
05/31/25 07:55 05/31/25 07:55 05/31/25 07:55 05/31/25 07:55 05/31/25 07:55
I&O
05/30/25 05/31/25 06/01/25
06:59 06:59 06:59
Intake Total 2069 / 2069 1880 / 188 180 / 180
Output Total 795 / 795 560 / 560
Balance 1275 / 1275 1320 / 1320 180 / 180
Review of Systems
-
History Source: Patient and Family
All other systems: Reviewed and negative
Constitutional: Reports No Symptoms; Denies Fever
EENT: Reports No Symptoms Reported; Denies Sore Throat or Runny Nose
Respiratory: Reports No Symptoms; Denies Cough or Trouble Breathing
Cardiac: Reports No Symptoms; Denies Chest Pain, Diaphoresis or Palpitations
Abdomen/GI: Reports No Symptoms; Denies Abdominal Pain, Nausea, Vomiting, Diarrhea or Constipated
Genitourinary: Reports No Symptoms; Denies Dysuria or Frequency
Neuro: Reports No Symptoms; Denies Dizzy or Headache
Physical Exam
-
General: Well Developed, Well Nourished, No Apparent Distress and Comfortable
HEENT: Normocephalic and Atraumatic
Respiratory: Clear to Auscultation; Negative Wheezes, Rales or Crackles
Cardiac: Regular Rhythm, S1/S2 and Murmur
GI: Soft, Nondistended, Normal Bowel Sounds and Tender (around incision sites, incisions CDI)
Musculoskeletal: No Clubbing and No Edema
Skin: Warm and Dry
Neuro: Awake, Alert and Oriented
[2025-05-31 11:15] VITALS: BP 140/83
--- NOTE | 2025-05-31 11:51 | W.CON.NEPH ---
Consultation
-
Date/Time Consultation Requested: May 30, 2025 at 2 PM
Date/Time Consultation Performed: May 31, 2025 at 9:30 AM
Requesting Provider: Dr. Dale
Performing Provider: Dr. Mota
Reason for Consultation: Acute kidney injury
Medical History
-
Chief Complaint: Acute kidney injury
History of Present Illness:
84 y/o male past medical history of aortic stenosis, hypertension, hyperlipidemia, COPD and BPH who presents with abdominal pain. Patient ultimately underwent laparoscopic cholecystectomy.
Renal consult for acute kidney injury creatinine peaked at 1.9 with a baseline creatinine of 1 upon admission. He had a brief period of hypotension and did get IV contrast.
Renal ultrasound no obstructive pathology with bilateral renal cysts
He denies any chest pain shortness of breath nausea or vomiting no difficulty urinating
Past Medical History
aortic stenosis, hypertension, hyperlipidemia, COPD and BPH
Social History
Tobacco: Non-Smoker
Alcohol: None
Family History
No renal disease
Allergies / Home Medications
Allergy/AdvReac Type Severity Reaction Status Date / Time
No Known Allergies Allergy Verified 05/25/25 17:35
�Medication �Instructions �Recorded �Confirmed �Type
amlodipine 5 mg tablet 5 mg PO QPM 01/04/23 05/25/25 History
coenzyme Q10 200 mg capsule (Co 200 mg PO MOWEFR@1800 01/04/23 05/25/25 History
Q-10)
qlppzlwjfekv-rhpwanhn-ckuaap tablet 1 tab PO QPM 01/04/23 05/25/25 History
simvastatin 40 mg tablet 40 mg PO MOWEFR@1800 01/04/23 05/25/25 History
tamsulosin 0.4 mg capsule 0.4 mg PO QPM 01/04/23 05/25/25 History
ascorbic acid (vitamin C) 500 mg 500 mg PO QPM 05/25/25 05/25/25 History
tablet (Vitamin C)
ezetimibe 10 mg tablet (Zetia) 10 mg PO DAILY 05/25/25 05/25/25 History
ibuprofen 200 mg tablet (Advil) 400 mg PO DAILYPRN PRN mild pain 05/25/25 05/25/25 History
simethicone 80 mg chewable tablet 80 mg PO DAILYPRN PRN gerd 05/25/25 05/25/25 History
Review of Systems
-
No chest pain shortness of breath no urinary frequency or urgency
All other systems: Negative unless noted
Physical Exam
Vital Signs
Vital Signs
Temp Pulse Resp BP Pulse Ox
98.6 F 82 14 138/77 93
05/31/25 07:55 05/31/25 07:55 05/31/25 07:55 05/31/25 07:55 05/31/25 07:55
Lab Results
WBC 8.4 10^3/uL (4.8-10.8) 05/31/25 06:09
RBC 3.98 10^6/uL (4.70-6.10) L 05/31/25 06:09
Hgb 11.8 g/dL (13.0-18.0) L 05/31/25 06:09
Hct 35.4 % (39.0-52.0) L 05/31/25 06:09
Plt Count 229 10^3/uL (130-400) 05/31/25 06:09
Sodium 140 mmol/L (135-145) 05/31/25 06:09
Potassium 3.7 mmol/L (3.5-5.1) 05/31/25 06:09
Chloride 111 mmol/L (98-107) H 05/31/25 06:09
Carbon Dioxide 23 mmol/L (22-30) 05/31/25 06:09
BUN 37 mg/dl (9-20) H 05/31/25 06:09
Creatinine 1.8 mg/dL (0.7-1.3) H 05/31/25 06:09
eGFR 37.12 05/31/25 06:09
Glucose 96 mg/dl (70-99) 05/31/25 06:09
Calcium 8.4 mg/dl (8.4-10.2) 05/31/25 06:09
Albumin 2.8 g/dl (3.5-5.0) L 05/30/25 06:31
Physical Exam
General no acute distress
HEENT no cephalic atraumatic extraocular muscle intact no scleral icterus no JVD neck supple
lungs clear to auscultation bilateral
heart regular S1-S2 positive
abdomen soft nontender positive bowel sounds
extremities no edema pulses present bilateral
Neurologically nonfocal alert and oriented x 3
Skin no lesions no abrasions no petechiae
Psych normal affect no bizarre behavior
Data Reviewed
-
Ultrasound: Image Personally Visualized and interpreted
Labs: Labs Reviewed by me, Discussed with Physician, Discussed with Patient and Discussed with Family
Assessment/Plan
-
84 y/o male past medical history of aortic stenosis, hypertension, hyperlipidemia, COPD and BPH who presents with abdominal pain. Patient ultimately underwent laparoscopic cholecystectomy.
Renal consult for acute kidney injury creatinine peaked at 1.9 with a baseline creatinine of 1 upon admission. He had a brief period of hypotension and did get IV contrast.
Renal ultrasound no obstructive pathology with bilateral renal cysts
Impression.
Acute kidney injury uncertain etiology
Status post laparoscopic cholecystectomy
COPD stable
Hypertension stable
Bilateral renal cysts
Plan.
NICHOLE likely mild ATN with contrast and mild hypotension.
Creatinine stable urinalysis bland no further workup
Renal ultrasound shows bilateral renal cysts several on each side with 1 possible complex./Present in 2021 = Could follow-up outpatient
Avoid NSAIDs.
Discussed with primary team okay for discharge from renal standpoint follow-up with my office in about 2 to 3 weeks with a BMP to be done next week
Discussed case with the patient and his at bedside
--- NOTE | 2025-05-31 14:05 | CM ---
Patient seen at bedside with patient physician and family. Patient signed IMM and signed form placed on chart. Patient for discharge home with no VN needs. CM will continue to follow for discharge planning needs.
Plan; home with no needs.
--- NOTE | 2025-05-31 15:38 | W.DCSUMMARY ---
Addendum entered and electronically signed by Norma Dale MD 05/31/25 16:12:
Read, reviewed, and agree. See same day progress note for additional details. Time spent coordinating care, DC planning, review of DC plan of care with resident, transition of care, review of records in EMR, med rec, consults, notes, d/w
consultants, nursing, family, and CM = 32 minutes
Original Note:
Discharge Summary
Discharge Data
Date of Admission: 05/25/25
Date of Discharge: 05/31/25
-
Pending Results: No
Hospital Course
Discharging Physician : Dr. Dale, Dr. Humphreys
Disposition : Home
Primary care physician : Dhiraj Rocha
Principal Discharge diagnosis : acute cholecystitis, choledocholithiasis, acute kidney injury
Chronic Discharge diagnosis :
Moderate / Severe Aortic Stenosis
Essential Hypertension
Hyperlipidemia
COPD
BPH
Hospital Course : Patient is an 84 y/o male past medical history of aortic stenosis, hypertension, hyperlipidemia, COPD and BPH who presents with abdominal pain. Patient reports some right upper quadrant pain yesterday which became much worse
today. He describes it as a sharp stabbing uribe. He denies any nausea, vomiting, diarrhea, constipation, fever, sweats or chills. Patient reports he was diagnosed with gallstones about a year ago and has had some intermittent attacks, but notes
this is the worst episodes he has experienced. In the ED, WBC 11.1 (increased in neutrophil percentage), CR 1.2, T. bili 3.7, D bili 2.0, AST/ALT 292/240, lipase 183 and an abdominal U/S showed gallbladder wall thickening to 5.3 mm minimal
pericholecystic fluid, positive Braxton sign and CBD 9 mm. In the hospital GI was consulted and they recommended a MRCP. MRCP was positive for gallbladder thickening pericystic fluid distended gallbladder with stones there was no intrahepatic ductal
dilation and there was a small filling defect in the distal common bile duct. There was concern for a stone that was not seen and so a ERCP was conducted on 05/28 and if stone was found in the common bile duct it was removed. Cardiology was also
consulted for the patient's aortic stenosis and repeat echo showed an EF of 60 to 55% mild concentric left ventricular hypertrophy and moderate to severe aortic stenosis. These findings were stable from his prior echo and cardiology was okay with
surgery. On 05/29 patient was taken to the OR and a cholecystectomy with intraoperative cholangiogram was performed without complications. Patient was to continue on antibiotics until 4 days after the operation. General surgery placed a HI drain
which was removed 2 days later on 05/31. On 05/29 postoperatively the patient creatinine was elevated to 1.7 representing an NICHOLE after increased from his baseline. Patient NICHOLE was thought to be from contrast-induced nephropathy from the GI procedures.
Nephrology was consulted and UA urine lytes renal ultrasound and bladder scan pointed to prerenal/intrarenal causes of his NICHOLE. Patient was given IV fluids and labs were monitored and until creatinine peaked and started to downtrend. Patient to
follow-up with outpatient labs and will continue to monitor. Patient was medically stable for discharge.
Important imaging findings :
Renal US w/o bladder 05/30
IMPRESSION: No evidence for hydronephrosis. Bilateral renal cysts.
Abd US 05/25
IMPRESSION:
Cholelithiasis and sludge, with wall thickening and pericholecystic fluid, suspicious for acute cholecystitis.
Distended common bile duct and mild intrahepatic duct dilatation. Although the common bile duct may increase with age, the possibility of choledocholithiasis cannot be excluded.
Procedure findings :
05/28 ERCP
FINDINGS/IMPRESSION: Fluoroscopy provided during endoscopic retrograde cholangiopancreatography with sphincterotomy, balloon sweep, stone removal. 3 fluoroscopic spot films recorded. Air Kerma: 28.0 mGy. Please see procedure report for further
details.
05/27/25 MRCP -+ cholecystitis - gallbladder wall thickening pericholecystic fluid distended gallbladder with stones impacted at the gallbladder neck. No intrahepatic ductal dilatation. Common bile duct 7 mm with small filling defects in the
distal common bile duct.
Discharge Plan
-
Patient Disposition: Home (Routine Discharge)
Discharge Diagnosis/Procedures: Acute cholecystitis, choledocholithiasis, cholecystectomy, acute kidney injury, hyperlipidemia, essential hypertension, benign prostatic hyperplasia
Condition: Good
Diet: As tolerated
Additional Diets: If issues with bloating or loose stools follow a low fat diet
Activity: As tolerated and No strenuous activity
Additional Activity: No heavy lifting (>20 lbs) or strenuous activities for 2 weeks post-op
Driving Restrictions: As prior to admission
Bathing Restrictions: None
Wound Care: Keep incisions clean and dry. Glue will flake off in 2-3 weeks. Stitches will dissolve. Cover old drain site with dry gauze and tape a s needed.
Activity Restrictions/Additional Instructions:
Call for fevers (>100.5), nausea or vomiting, worsening abdominal pain
Referrals:
João Manley MD [Active, Surgical] - in two to four weeks
Dhiraj Rocha MD [Family Provider, Internal Medicine] - in less than 1 week
Josiah Smyth MD [Active, Cardiology] - 07/06/25 1:20 pm
Referral Note: You have a cardiology follow up appointment at the [facility]. Please call with questions.
Prescriptions:
Continued
amlodipine 5 mg Tablet
5 mg PO QPM
tamsulosin 0.4 mg Capsule
0.4 mg PO QPM
ascorbic acid (vitamin C) [Vitamin C] 500 mg Tablet
500 mg PO QPM
simethicone 80 mg Tablet,Chewable
80 mg PO DAILYPRN PRN (Reason: gerd)
simvastatin 40 mg Tablet
40 mg PO MOWEFR@1800 Qty: 0 0RF
xxaorrnsshay-wlobyxzs-udddpp Tablet
1 tab PO QPM Qty: 0 0RF
ezetimibe [Zetia] 10 mg Tablet
10 mg PO DAILY Qty: 0 0RF
coenzyme Q10 [Co Q-10] 200 mg Capsule
200 mg PO MOWEFR@1800 Qty: 0 0RF
Held
ibuprofen [Advil] 200 mg Tablet
400 mg PO DAILYPRN PRN (Reason: mild pain)
Hold Instructions: Resume on 06/14/25. Follow up with PCP before resuming
Discharge Orders:
Discharge Patient (As Directed); Ordered 05/31/25
Ordered By: Noemy Humphreys
Discharge Date and Time
Discharge Date/Time: 05/31/25 13:44
Print Language: BELARUSIAN
== END 2025-05-31 13:44 | disposition home or self-care (01) | DRG 418 ==
LOC: 4 EAST ACU 23:31
PROVIDERS: Internal Medicine Gastroenterology; Physician Assistant Medical; Student in an Organized Health Care Education/Training Program; Surgery; ADMITTING PHYSICIAN Hospitalist; ATTENDING PHYSICIAN Internal Medicine; CONSULT PHYSICIAN Internal Medicine; CONSULT PHYSICIAN Internal Medicine Cardiovascular Disease; CONSULT PHYSICIAN Internal Medicine Nephrology; EMERGENCY PHYSICIAN Emergency Medicine; FAMILY PHYSICIAN Internal Medicine Geriatric Medicine; OTHER PHYSICIAN Surgery
PROC: 0FCD8ZZ Extirpation of Matter from Pancreatic Duct, Via Natural or Artificial Opening Endoscopic (ICD-10-PCS; 2025-05-28)
PROC: 0FT44ZZ Resection of Gallbladder, Percutaneous Endoscopic Approach (ICD-10-PCS; 2025-05-29)
DX: K80.42 Calculus of bile duct with acute cholecystitis without obstruction (principal); N17.9 Acute kidney failure, unspecified; Z87.891 Personal history of nicotine dependence; I08.0 Rheumatic disorders of both mitral and aortic valves; I12.9 Hypertensive chronic kidney disease with stage 1 through stage 4 chronic kidney disease, or unspecified chronic kidney disease; N18.30 Chronic kidney disease, stage 3 unspecified; E78.00 Pure hypercholesterolemia, unspecified
CPT/HCPCS: 74181; 74300; 74330; 76000; 76700; 76775; 80048; 80053; 81003; 81015; 82248; 82570; 83690; 83735; 83935; 84300; 85025; 85027; 85610; 85730; 87040; 87086; 88304; 93005; 93306; 96361; 96365; 99285; A4300; C1769; J3480

== ENCOUNTER 2025-06-28 06:25 | Day surgery (SDC) | payer MEDICARE, OTHER, SELFPAY ==
[2025-06-25 14:19] VITALS: BMI 21.9
[2025-06-28 12:58] VITALS: BMI 21.9
[2025-06-28 13:06] VITALS: BP 138/77
[2025-06-28] MEDS: NORMOSOL-R/PLASMALYTE-A 1000 IV (13:06)
[2025-06-28 15:27] VITALS: BP 120/58
[2025-06-28 15:30] VITALS: BP 118/66
[2025-06-28 15:45] VITALS: BP 135/60
[2025-06-28 16:00] VITALS: BP 145/73
[2025-06-28 16:15] VITALS: BP 136/69
== END 2025-06-28 16:35 | disposition home or self-care (01) ==
LOC: SDS 06:25
PROVIDERS: ATTENDING PHYSICIAN Surgery
DX: D12.8 Benign neoplasm of rectum (principal)
CPT/HCPCS: 45171; 88305